=== PATIENT | female | born 1945 | race Caucasian/White ===

== ENCOUNTER → 2021-10-08 10:27 | Outpatient (BNVA) | payer BC, SELFPAY | PROVIDERS: Visit Provider Psychiatry & Neurology Neurology ==

== ENCOUNTER → 2021-12-14 09:00 | Outpatient (BNVA) | payer MEDICARE, BC, SELFPAY | PROVIDERS: Visit Provider Psychiatry & Neurology Neurology | DX: F09 Unspecified mental disorder due to known physiological condition (principal); F41.9 Anxiety disorder, unspecified; Z79.899 Other long term (current) drug therapy | CPT/HCPCS: 99212 ==

== ENCOUNTER → 2023-01-03 13:07 | Outpatient (BNVA) | payer MEDICARE, BC, SELFPAY | PROVIDERS: Visit Provider Psychiatry & Neurology Neurology | DX: F09 Unspecified mental disorder due to known physiological condition (principal); F41.9 Anxiety disorder, unspecified; R26.9 Unspecified abnormalities of gait and mobility | CPT/HCPCS: 99212 ==

== ENCOUNTER 2023-04-15 15:43 | Outpatient (AMB) | payer MEDICARE, BC, SELFPAY ==
--- NOTE | 2023-04-15 15:43 | A.OFFVIS_ITS ---
Intake Vital Signs 04/15/23 15:44 Weight 170 lb 6 oz BP 134/62 Blood Pressure Location Lt brachial Position Sitting Pulse 96 Pulse Source Pulse Oximeter Pulse Oximetry (%) 98 Oxygen Delivery Method Room Air Intake Visit Reasons: 3m follow up-confirmed Intake Note: Pt here today for 3 month fup Allergies No Known Allergies Allergy (Verified 04/15/23 15:48) Medication List - Last Reconciled 04/15/23 by Stacy Neil MD apixaban (Eliquis) 5 mg PO BID cholecalciferol (vitamin D3) 25 mcg PO DAILY citalopram 10 mg PO DAILY hydrochlorothiazide 12.5 mg PO DAILY levothyroxine 50 mcg PO DAILY memantine 7 mg PO DAILY memantine 21 mg PO DAILY simvastatin 10 mg PO DAILY HPI HPI Comments History of Present Illness Details 77y/o female comes for follow up.she was diagnosed with ovarian mass and during surgery diagnosed with appendix cancer . she sees an oncologist at [place]. 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 She had MRI brain 09/18/21- moderate parenchymal volume loss and probably white matter changes she is accompanied by her .Her memory is stable she is less anxious with citalopram. she repeats frequently . No hallucinations. [facility] Medical History Appendix carcinoma Back pain Cancer Gait disorder HTN (hypertension) Hyperlipidemia Hypothyroidism Surgical History H/O bilateral oophorectomy Hx of appendectomy Family History Mother HTN (hypertension) Diabetes mellitus Cancer Thyroid disorder Dementia Father Dementia Social History Alcohol intake: never Patient Tobacco Use Status: Never used Tobacco Physical Exam Vital Signs: Last Vital Signs Pulse 96 04/15/23 15:44 BP 134/62 04/15/23 15:44 Pulse Ox 98 04/15/23 15:44 Oxygen Delivery Method Room Air 04/15/23 15:44 Const Orientation/consciousness: oriented to person and oriented to place Neuro General: oriented to person, oriented to place and moves all extremities Cranial nerves: Yes CN's II-XII intact bilaterally and Yes Normal facial strength present Cognition (Neuro): abnormal cognition Motor exam (neuro): 5/5 motor strength present throughout Psych Appearance: grossly normal Assessment & Plan Assessment & Plan (1) Cognitive disorder: Code(s): F09 - Unspecified mental disorder due to known physiological condition (2) Anxiety: Code(s): F41.9 - Anxiety disorder, unspecified Plan continue citalopram 10mg qd for anxiety Continue namenda XR 21 mg qd and titrate to 28mg qd Suggested to include cognitive activities like playing cards , cross word puzzle etc in her daily activity PT- started 2 weeks ago Medications: Discontinued memantine Discontinued Reason: Patient no longer taking 7 mg PO DAILY 30 ea 0RF Coding Level of Care Code Est Pt Level 4 (83491) Diagnoses Cognitive disorder F09 Anxiety F41.9
[2023-04-15 15:44] VITALS: BP 134/62; PULSE 96; O2SAT 98
== END 2023-04-15 16:11 | disposition home or self-care (01) ==
PROVIDERS: Visit Provider Psychiatry & Neurology Neurology
DX: F41.9 Anxiety disorder, unspecified (principal); G31.84 Mild cognitive impairment of uncertain or unknown etiology
CPT/HCPCS: 99214

== ENCOUNTER → 2023-04-15 15:43 | Outpatient (BNVA) | payer MEDICARE, BC, SELFPAY | PROVIDERS: Visit Provider Psychiatry & Neurology Neurology | DX: F09 Unspecified mental disorder due to known physiological condition (principal); F41.9 Anxiety disorder, unspecified; Z79.899 Other long term (current) drug therapy | CPT/HCPCS: 99212 ==

== ENCOUNTER 2023-04-25 13:00 | Outpatient (RCR) | payer MEDICARE, BC, SELFPAY ==
--- NOTE | 2023-03-26 14:54 | MHC.PT.EP ---
[facility] [place] [facility] [place] [facility] [place] [facility] [address] Marcela Ayala [address] [phone] F: [phone] F: [phone] F: [phone] F: [phone] Physical Therapy Plan of Care Date of Evaluation: Date of Surgery: NA Diagnosis: ABNORMALITIES OF GT AND MOBILITY Assessment: Pt IS 77 YO F REFERRED TO PT FROM DR AHN PER REQUEST FROM Pt'S DTR (HOME CARE NURSE PRESENT FOR EVAL TODAY) WHO HAD NOTICED SOME BAL DEFICITS (NOT LIFTING LEGS ENOUGH WITH GT WHEN FATIGUED, TRUNK LEANING FORWARD WITH FATIGUE , HOLDING ON TO HUSBANDS ARM WITH GT ETC). Pt DID HAVE ONE FALL (TRIPPED OVER ROOT OF TREE) IN RECENT PAST. PRESENTS TO PT WITH GOOD LE STRENGTH MMT, GOOD GENERAL FLEXIBILITY WITH SOME HIGHER LEVEL BALANCE DEFICITS. Pt HAS SIGNIF MEMORY IMPAIRMENT. LIVES WITH IN SPLIT LEVEL WITH 6 CHILDREN INVOLVED. DOES NOT DRIVE (ALTHOUGH SAYS SHE STILL CAN). NO AD. HER GOAL IS TO GAIN CONFIDENCE WITH GT AND GAIN STRENGTH TO HELP WITH BALANCE. GOOD PT CANDIDATE TO HELP ACHIEVE THESE GOALS Frequency and Duration: The patient will be seen 2X/WK X 8 WKS Short Term Goals: 1. I HEP WITH DC EX PLAN 2. Pt WITH INCREASED UNDERSTANDING OF FALL PREVENTION IDEAS House Principal Goals: 1. IMPROVED TUG X 2-3 SECONDS 2. IMPROVED 30 SEC SIT<>STAND TO AT LEAST 10 REPS 3. Pt AND FAMILY TO REPORT NOTABLE IMPROVED BAL Treatment Plan: Modalities to reduce pain, spasms and effusion. Manual therapy to restore motion and function. Therapeutic exercise to improve strength and flexibility. Neuromuscular re-education for posture and balance. Therapeutic activities to return to functional activities of daily living. Electronically signed by: QI ALLISON PT Please sign and return to therapist. Thank you for your referral.
--- NOTE | 2023-06-25 09:29 | MHC.PT.DC ---
[facility] [place] Office [place] [facility] [place] [address] Marcela Ayala [address] [phone] F: [phone] F: [phone] F: [phone] F: [phone] Physical Therapy Discharge Report Diagnosis: ABNORMALITIES OF GT AND MOBILITY Date of Surgery: NA Date of Evaluation: 03/26/23 Date of Discharge: 06/25/23 Treatments to Date: 8 Cancellations to Date: No Shows to Date: Discharge Status: Recommend MD Follow-up Discharge Summary: PER ASSESSMENT BY RICCI BEARD PT,DPT AT LAST SESSION ON 04/25/23: Pt has attended 8 session of PT to date exhibiting improvements in endurance and LE strength gains since star of care. Pt denies history of falls or LOB in recent weeks however poor memory of patient ( Drew- denies incidence as well). Pt has exhibited plateaued in progress with therapy. She has been issued a written home program but reports poor compliance. Pt's educated in the importance of aiding his with remaining active via use of restorator and HEP sheets. Discussed benefit in consistency of HEP program at least a few times per week with support of family. Jane was able to complete all activities with no report of pain. Pt is scheduled to see speech and hearing 05/08/23 at 9:30am for a cognitive assessment. At this time memory appears to be of greater concern and mobility has improved. Pt's was educated should functional decline appear to change to address with any of her physicians. Pt to undergo another CT of abdomen to assess status of CA in [place] in a few weeks per report of Drew. Pt reports improved compliance with obtaining a medication pill box with support of . Primary PT had discussion with pt's daughter Nasima this week on 04/23/23 regarding plans for a family meeting to discuss patient progress. 04/18/23: Pt completed several dynamic stepping and change of positional for LE in the office today with no LOB observed. Pt's questioning how much longer she will need 2x/weekly. Secondary therapist to discuss with primary PT need to taper down due to limited gains, poor compliance reported at home. Of note: therapist inquired with patient how she was doing with new addition of Eliquis to her daily medications. Poor carryover of having a new medication, Drew has not been helping her take this. Pt was encouraged to start using a pill box for AM/PM to ensure she is taking her medication as recommended as well as having support from /family. Pt reports I always take my thyroid pill in the AM however she has poor insight and carryover and concern for lack of taking new medications. Expressed benefit in using pill box for all medications/consistency and ability to identify if she has taken her meds daily. WITH PLAN Pt to have family meeting, consult with speech regarding memory concerns. Tentative D/C to I HEP due to plateaued progress, poor compliance reported at home. Pt educated/ encouraged in need to complete HEP with support of family to maintain gains/mobility/strength. NO FURTHER APPTS SCHEDULED [ End ] Electronically signed by: QI ALLISON PT Please sign and return to therapist. Thank you for your referral.
== END 2023-06-25 09:29 | disposition home or self-care (01) ==
LOC: HO.PTWFD 13:00
PROVIDERS: PCP Internal Medicine; Visit Provider Psychiatry & Neurology Neurology
DX: R26.9 Unspecified abnormalities of gait and mobility (principal)
CPT/HCPCS: 97110; 97161; 97530; 97535

== ENCOUNTER 2023-10-13 15:34 | Outpatient (AMB) | payer MEDICARE, BC, SELFPAY ==
--- NOTE | 2023-10-13 15:37 | MHC.OFFVIS ---
Intake Vital Signs 10/13/23 15:39 Height 5 ft 2 in Weight 175 lb BMI 32.0 BP 132/70 Blood Pressure Location Rt brachial Position Sitting Respiration 17 Pulse 92 Pulse Source Pulse Oximeter Pulse Oximetry (%) 98 Oxygen Delivery Method Room Air Intake Visit Reasons: 6 mo follow up - LVM Intake Note: Pt presents for a 6 month follow up for cognitive disorder. Associate Brand Manager Required: No Allergies No Known Allergies Allergy (Verified 10/13/23 15:38) Medication List - Last Reconciled 10/13/23 by Stacy Neil MD apixaban (Eliquis) 5 mg PO BID cholecalciferol (vitamin D3) 25 mcg PO DAILY citalopram 10 mg PO DAILY hydrochlorothiazide 12.5 mg PO DAILY levothyroxine 100 mcg PO DAILY memantine 28 mg PO DAILY simvastatin 10 mg PO DAILY HPI HPI Comments History of Present Illness Details 78y/o female comes for follow upHer cognition is worse. .she was diagnosed with ovarian mass and during surgery diagnosed with appendix cancer . she sees an oncologist at [place]. 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 She had MRI brain 09/18/21- moderate parenchymal volume loss and probably white matter changes she is accompanied by her .Her memory is stable she is less anxious with citalopram. she repeats frequently . No hallucinations. [facility] Medical History (Updated 04/17/23 @ 13:56 by Stacy Neil MD) Cognitive change Gait disorder Appendix carcinoma Cancer Back pain Hypothyroidism Hyperlipidemia HTN (hypertension) Surgical History Hx of appendectomy H/O bilateral oophorectomy Family History Mother HTN (hypertension) Diabetes mellitus Cancer Thyroid disorder Dementia Father Dementia Social History Alcohol intake: never Patient Tobacco Use Status: Never used Tobacco Physical Exam Vital Signs: Last Vital Signs Pulse 92 10/13/23 15:39 Resp 17 10/13/23 15:39 BP 132/70 10/13/23 15:39 Pulse Ox 98 10/13/23 15:39 Oxygen Delivery Method Room Air 10/13/23 15:39 BMI result Body Mass Index 32.0 Const Orientation/consciousness: oriented to person and oriented to place Neuro General: oriented to person, oriented to place and moves all extremities Cranial nerves: Yes CN's II-XII intact bilaterally and Yes Normal facial strength present Cognition (Neuro): abnormal cognition Motor exam (neuro): 5/5 motor strength present throughout Psych Appearance: grossly normal Assessment & Plan Assessment & Plan (1) Cognitive disorder: Code(s): F09 - Unspecified mental disorder due to known physiological condition (2) Anxiety: Code(s): F41.9 - Anxiety disorder, unspecified Plan continue citalopram 10mg qd for anxiety Continue namenda XR 28mg qd Suggested to include cognitive activities like playing cards , cross word puzzle etc in her daily activity Medications: New donepezil 1/2 tab qd for 4 weeks then 1 tab qd 10 mg PO DAILY 30 tabs 6RF Refilled citalopram 10 mg PO DAILY 90 tabs 2RF memantine 28 mg PO DAILY 30 ea 6RF Coding Level of Care Code Est Pt Level 4 (94324) Diagnoses Cognitive disorder F09 Anxiety F41.9
[2023-10-13 15:39] VITALS: BP 132/70; PULSE 92; RESP 17; O2SAT 98; BMI 32.0
== END 2023-10-13 16:10 | disposition home or self-care (01) ==
PROVIDERS: PCP Internal Medicine; Visit Provider Psychiatry & Neurology Neurology
DX: R41.89 Other symptoms and signs involving cognitive functions and awareness (principal); F41.9 Anxiety disorder, unspecified; C18.1 Malignant neoplasm of appendix
CPT/HCPCS: 99214

== ENCOUNTER → 2023-10-13 15:34 | Outpatient (BNVA) | payer MEDICARE, BC, SELFPAY | PROVIDERS: PCP Internal Medicine; Visit Provider Psychiatry & Neurology Neurology | DX: F09 Unspecified mental disorder due to known physiological condition (principal); F41.9 Anxiety disorder, unspecified | CPT/HCPCS: 99212 ==

== ENCOUNTER 2024-04-14 13:47 | Outpatient (AMB) | payer MEDICARE, BC, SELFPAY ==
--- NOTE | 2024-04-14 13:47 | MHC.OFFVIS ---
Intake Visit Reasons: Follow up Nicole: [phone] Intake Note: Pt presents for follow up for cognitive disorder via telehealth. Crystal Inspector Required: No Allergies No Known Allergies Allergy (Verified 04/14/24 13:48) [facility] Medical History (Updated 04/17/23 @ 13:56 by Stacy Neil MD) Cognitive change Gait disorder Appendix carcinoma Cancer Back pain Hypothyroidism Hyperlipidemia HTN (hypertension) Surgical History Hx of appendectomy H/O bilateral oophorectomy Family History Mother HTN (hypertension) Diabetes mellitus Cancer Thyroid disorder Dementia Father Dementia Social History Alcohol intake: never Patient Tobacco Use Status: Never used Tobacco Coding
--- NOTE | 2024-04-14 14:12 | A.OFFVIS_ITS ---
Intake Visit Reasons: Follow up Nicole: [phone] Allergies No Known Allergies Allergy (Verified 04/14/24 13:48) HPI Comments Details: 78y/o female calls for follow up Her cognition is same SHe reports excessive fatigue and lack of motivation Her mood is stable . .she was diagnosed with ovarian mass and during surgery diagnosed with appendix cancer . she has a follow up with oncologist She had MRI brain 09/18/21- moderate parenchymal volume loss and probably white matter changes she is accompanied by her .Her memory is stable she is less anxious with citalopram. she repeats frequently . No hallucinations. [facility] Medical History Cognitive change Gait disorder Appendix carcinoma Cancer Back pain Hypothyroidism Hyperlipidemia HTN (hypertension) Surgical History Hx of appendectomy H/O bilateral oophorectomy Family History Mother HTN (hypertension) Diabetes mellitus Cancer Thyroid disorder Dementia Father Dementia Social History Alcohol intake: never Patient Tobacco Use Status: Never used Tobacco Physical Exam Const General: cooperative Orientation/consciousness: oriented to person and oriented to place Neuro General: oriented to person and oriented to place Telehealth Telehealth Telehealth Platform: Telephone Location of provider rendering services: practice address Location of patient: address on file Patient Identification confirmed using: Name, : Yes Telehealth method: voice only Patient verbally consented to treatment: Yes Patient verbally consented to billing insurance company: Yes Patient informed of any privacy concerns related to visit: Yes Assessment & Plan Assessment & Plan (1) Cognitive disorder: Code(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 Coding Level of Care Code Tele Est Pt Level 4 (10424) Diagnoses Cognitive disorder F09 Anxiety F41.9 Time Spent (min) 16
== END 2024-04-14 16:11 | disposition home or self-care (01) ==
LOC: HO.HSMS 13:47
PROVIDERS: PCP Internal Medicine; Visit Provider Psychiatry & Neurology Neurology
DX: R41.89 Other symptoms and signs involving cognitive functions and awareness (principal); F41.9 Anxiety disorder, unspecified
CPT/HCPCS: 99442

== ENCOUNTER → 2024-04-14 13:47 | Outpatient (BNVA) | payer MEDICARE, BC, SELFPAY | PROVIDERS: PCP Internal Medicine; Visit Provider Psychiatry & Neurology Neurology ==

== ENCOUNTER 2024-07-28 07:15 | Inpatient (IN) | payer MEDICARE, BC, SELFPAY ==
[2024-07-28] VITALS (8 sets, daily range): BP systolic 105–149; BP diastolic 44–74; PULSE 78–94; RESP 12–18; TEMP 37–37.8; O2SAT 93–97; BMI 33.7; BMI 33.2
--- NOTE | ~2024-07-28 | XR_ITS ---
EXAMINATION: XR CHEST CLINICAL INFORMATION: upper resp sx COMPARISON: None available. TECHNIQUE: Frontal view of the chest was obtained. FINDINGS: Ill-defined patchy opacity right upper hemithorax. No pleural effusion. No pneumothorax. No hyperinflation. Cardiomediastinal silhouette is normal in size. S-shaped curvature of the thoracolumbar spine. XR/XR chest 1V IMPRESSION: Concerning malignancy either primary versus metastatic, right lung. Electronically signed by: David Siu MD 07/28/2024 08:45 AM JAMES
--- NOTE | ~2024-07-28 | CT_ITS ---
EXAMINATION: CT HEAD WITHOUT CONTRAST CLINICAL INFORMATION: Weakness COMPARISON: None available. TECHNIQUE: Contiguous axial imaging was performed from the skull base to vertex without intravenous administration of contrast. This CT examination was performed using dose optimization techniques as appropriate, variously including the following: *Automated exposure control *Adjustment of mA and/or kV according to patient size (this includes techniques or standardized protocols for targeted exams where dose is matched to indication/reason for exam; i.e. extremities or head) *Use of iterative reconstruction technique DLP: 1058 mGy-cm FINDINGS: Study limited by patient motion. There is prominence to the sulci and ventricles compatible with involutional change with deep white matter gliosis noted. No evidence for intra or extra axial fluid collection, hemorrhage, mass, or mass effect. Calvarium is intact. No fracture seen. CT/CT head/brain wo IV con IMPRESSION: No acute intracranial pathology. Electronically signed by: Ja Arreguin MD 07/28/2024 09:31 AM JAMES
--- NOTE | ~2024-07-28 | CT_ITS ---
EXAMINATION: CT CHEST WITH CONTRAST CLINICAL INFORMATION: Right upper lobe mass. COMPARISON: Correlated to chest x-ray dated July 28, 2024. TECHNIQUE: Multidetector volumetric CT imaging of the chest was obtained after the administration of 65 mL of Omnipaque 350 intravenous contrast without immediate adverse reactions. Axial MIP volume rendering provided. Sagittal and coronal reformatted images were obtained. This CT examination was performed using dose optimization techniques as appropriate, variously including the following: *Automated exposure control *Adjustment of mA and/or kV according to patient size (this includes techniques or standardized protocols for targeted exams where dose is matched to indication/reason for exam; i.e. extremities or head) *Use of iterative reconstruction technique DLP: 523 mGy-cm FINDINGS: Limited by patient's breathing motion artifact. LUNGS: Patchy peribronchial pulmonary groundglass right upper lobe and right lung base. No bronchiectasis. No honeycombing. MEDIASTINUM: No lymphadenopathy, mediastinum or perihilar. No pericardial effusion. Calcified plaques in the thoracic aorta wall and its main branches. No aneurysm or dissection, thoracic aorta. Calcified plaques in the coronary arteries. PLEURA: No pleural effusion. No pneumothorax. AXILLA: No lymphadenopathy. UPPER ABDOMEN: Calcified plaques in the splenic artery and calcified plaques in the abdominal aorta and the origin of the main renal arteries. OSSEOUS STRUCTURES: Multilevel spondylosis without acute fracture or listhesis. No gross lytic or blastic lesions. CT/CT chest w IV con IMPRESSION: Multifocal pneumonia, right upper lobe and right lung bases. Follow-up until resolution. Fleischner guidelines were followed. Electronically signed by: David Siu MD 07/28/2024 02:05 PM JAMES
--- NOTE | 2024-07-28 07:38 | ECG_ITS ---
Test Reason : fall Blood Pressure : / mmHG Vent. Rate : 084 BPM Atrial Rate : 084 BPM P-R Int : 124 ms QRS Dur : 106 ms QT Int : 388 ms P-R-T Axes : 053 044 035 degrees QTc Int : 458 ms Sinus rhythm with Premature atrial complexes Incomplete right bundle branch block T wave abnormality, consider anterior ischemia Abnormal ECG No previous ECGs available Referred By: Harjinder Jorgensen Electronically Signed By:KIRT ENGLISH MD
[2024-07-28 08:13] LABS: MANUAL DIFF FLAG NO
[2024-07-28 08:15] LABS: Basophils Absolute Auto 0.1 X10*3/uL (0.0-0.2); Basophils Percent Auto 0.5 % (0-2); Eosinophils Percent Auto 0.2 % (0-4); Hematocrit 41.2 % (37.0-47.0); Hemoglobin 14.2 g/dl (12.0-16.0); Imm Gran Abs Auto 0.03 X10*3/uL (0.00-0.03); Imm Gran Pct Auto 0.3 % (0.0-0.4); Lymphocytes Absolute Auto 1.2 X10*3/uL (1.2-4.9); Lymphocytes Percent Auto 12.1 % (20-40); Mean Corpuscular HGB Conc 34.5 g/dl (31.0-35.0); Mean Corpuscular Hemoglobin 30.3 pg (27.0-33.0); Mean Corpuscular Volume 87.8 fL (80.0-98.0); Monocytes Absolute Auto 0.8 X10*3/uL (0.1-1.2); Monocytes Percent Auto 7.7 % (2-11); Neutrophils Absolute Auto 7.8 x10*3/uL (2.0-8.3); Neutrophils Percent Auto 79.2 % (45-73); Platelet Count 192 X10*3/uL (160-400); Red Blood Count 4.69 X10*6/uL (4.20-5.50); Red Cell Distribution Width 12.5 % (11.0-16.0); White Blood Count 9.9 X10*3/uL (4.8-10.8)
[2024-07-28 08:19] LABS: Appearance Urine Cloudy; Color Urine Yellow; Glucose Urine UA Negative (Negative); Leukocyte Esterase Urine Negative (Negative); Nitrite Urine Negative (Negative); PH 5.5 (5.0-9.0); Specific Gravity - Urine 1.015 (1.005-1.025); UMIC TRIGGER UACC YES; Urine Blood Large (3+) (Negative); Urine Ketones Negative (Negative); Urine Protein 30 (1+) mg/dL (Neg-Trace)
[2024-07-28 08:24] LABS: Bacteria Urine Trace (None Seen); Hyaline Casts Urine 0-2 /LPF (0-2); WBC Urine 0-5 /HPF (0-5)
[2024-07-28 08:37] LABS: Troponin-I High Sensitivity 9.8 ng/L (<3.5-17.0)
--- NOTE | 2024-07-28 08:55 | PC.NURSE ---
pt alert to person at times place, labs drawn/ekg performed, swab performed, lungs diminished throughout, non productive cough. upon arriving he told his daughter at bedside that pt had slid down onto the floor- denied any head strike. cxr performed, Pt and do live with their son and .
--- NOTE | 2024-07-28 08:59 | ED.GENADULT ---
HPI - General Adult General Chief complaint: Upper Respiratory Symptoms Stated complaint: WEAKNESS Time Seen by Provider: 07/28/24 07:31 Source: family Mode of arrival: ambulatory Limitations: altered mental status History of Present Illness ED Provider: Dr. Jorgensen HPI narrative: Patient is a 78yo female with hitory of dementia, hypothyroidism, hyperlipidemia,, hypertension who presents with weakness and cough. Patient has had a 3 day history of cough, could not get out of bed so the family called the ambulance Onset (ago): day(s) Related Data Home Medications ?Medication ?Instructions ?Recorded ?Confirmed cholecalciferol (vitamin D3) 25 25 mcg PO DAILY 10/08/21 10/13/23 mcg (1,000 unit) capsule hydrochlorothiazide 12.5 mg tablet 12.5 mg PO DAILY 10/08/21 10/13/23 simvastatin 10 mg tablet 10 mg PO DAILY 10/08/21 10/13/23 apixaban 5 mg tablet (Eliquis) 5 mg PO BID 04/15/23 10/13/23 levothyroxine 50 mcg capsule 88 mcg PO DAILY 04/14/24 Previous Rx's ?Medication ?Instructions ?Recorded citalopram 10 mg tablet 10 mg PO DAILY #90 tabs 10/13/23 donepezil 10 mg tablet 10 mg PO DAILY #30 tabs 10/13/23 memantine 28 mg capsule 28 mg PO DAILY #30 ea 07/12/24 sprinkle,extended release 24hr Allergies Allergy/AdvReac Type Severity Reaction Status Date / Time No Known Allergies Allergy Verified 07/28/24 07:28 Review of Systems Review of Systems: Yes Unobtainable due to mental status Neurologic: Denies Sensory deficit (Neuro) FOR[facility]LY [facility] Past Medical History Medical History Dementia Cognitive change Gait disorder Appendix carcinoma Cancer Back pain Hypothyroidism Hyperlipidemia HTN (hypertension) Surgical History Hx of appendectomy H/O bilateral oophorectomy Family History Family History Mother HTN (hypertension) Diabetes mellitus Cancer Thyroid disorder Dementia Father Dementia Social History Social History Unable to assess alcohol history related to: Unable to respond Alcohol intake: never Patient Tobacco Use Status: Never used Tobacco Smoked in Last 30 Days: No Use of substances other than those prescribed or required for medical reasons: No Advance Directives: No Advance Directives Information Provided: Yes Do you have a plan to hurt others: No Plan Physical Exam ED Vital Signs: Vital Signs - 24 hr 07/28/24 07:23 07/28/24 07:30 07/28/24 12:54 Temperature 99.0 F Pulse Rate 82 86 Respiratory Rate 18 18 Blood Pressure 149/66 H 124/47 L Pulse Oximetry 97 97 94 Oxygen Delivery Method Room Air Room Air Room Air 07/28/24 14:32 Temperature 100.1 F Pulse Rate 94 Respiratory Rate 12 Blood Pressure 146/57 H Pulse Oximetry 95 Oxygen Delivery Method Room Air BMI result Body Mass Index 33.7 Const Other: occaisional cough Nutritional Appearance: average body habitus Orientation/consciousness: oriented to person Limitations: no limitations HENMT Head: Yes normal to inspection Ears: external ears normal General nose exam: Normal external nose present Mouth: Normal oral and palatal mucosa present and oropharynx normal Throat: Yes posterior oropharynx normal Eyes General: appearance normal, both eyes and all related structures Neck Neck: Yes normal visual inspection Chest Chest palpation & inspection: normal inspection of the chest Resp Auscultation: clear to auscultation bilaterally Cardio Jugular venous distension: no JVD Rate: regular rate Rhythm: regular rhythm Heart sounds: S1 normal heart sound present and S2 normal heart sound present GI Inspection: Yes normal to inspection Palpation (GI): Soft to palpation, nontender and No hepatosplenomegaly present Auscultation: normal bowel sounds General: Yes no CVA tenderness Back/Spine/Pelvis Back: no CVA tenderness Skin General skin exam: no rashes or lesions noted Neuro General: oriented to person Cranial nerves: Yes CN's II-XII intact bilaterally Motor exam (neuro): 5/5 motor strength present throughout Sensory Exam: No Sensory deficit (Neuro) Extrem General: Yes normal to inspection Psych Appearance: grossly normal Course Reevaluation(s) Reevaluation #1: Patient now spiking fevers, infiltrate on CT will start IV abx and admit. Time: 14:51 Medications Administered Discontinued Medications Generic Name Dose Route Start Last Admin Trade Name Freq PRN Reason Stop Dose Admin Diphenhydramine HCl 25 mg 07/28/24 12:34 07/28/24 12:43 Diphenhydramine Hcl 50 Mg/Ml Vial IVPUSH 07/28/24 12:35 25 mg ONCE ONE Administration Iohexol 100 ml 07/28/24 12:26 07/28/24 12:26 Iohexol 350 Mg/Ml 100 Ml Infus..Btl IV 07/28/24 12:27 65 ml ONCE ONE Administration Potassium Chloride 20 meq 07/28/24 12:23 07/28/24 12:43 Potassium Chloride Er 20 Meq Tab.Er.Prt PO 07/28/24 12:24 20 meq ONCE ONE Administration Medical Decision Making Differential Diagnosis Differential Diagnoses: The differential diagnosis associated with the presentation includes (Weakness, lung mass, pneumonia, UTI, electrolyte abnormality) Admission/Observation Consideration of admission/observation: Escalation of care including admission/observation considered (upon arrival patient considered for admisson) Consult Healthcare Provider Management of the patient was discussed with: Hospitalist Lab Data 07/28/24 08:07 07/28/24 08:07 Labs: Lab Results 07/28/24 Range/Units 08:07 WBC 9.9 (4.8-10.8) X10*3/uL RBC 4.69 (4.20-5.50) X10*6/uL Hgb 14.2 (12.0-16.0) g/dl Hct 41.2 (37.0-47.0) % MCV 87.8 (80.0-98.0) fL MCH 30.3 (27.0-33.0) pg MCHC 34.5 (31.0-35.0) g/dl RDW 12.5 (11.0-16.0) % Plt Count 192 (160-400) X10*3/uL MPV 10.0 (9.4-12.3) fL Immature Gran % (Auto) 0.3 (0.0-0.4) % Neut % (Auto) 79.2 H (45-73) % Lymph % (Auto) 12.1 L (20-40) % Citrus % (Auto) 7.7 (2-11) % Eos % (Auto) 0.2 (0-4) % Baso % (Auto) 0.5 (0-2) % Lymph # (Auto) 1.2 (1.2-4.9) X10*3/uL [place]rus # (Auto) 0.8 (0.1-1.2) X10*3/uL Eos # (Auto) 0.0 (0.0-0.4) X10*3/uL Baso # (Auto) 0.1 (0.0-0.2) X10*3/uL Abs Immat Gran (auto) 0.03 (0.00-0.03) X10*3/uL Absolute Neuts (auto) 7.8 (2.0-8.3) x10*3/uL Absolute Nucleated RBC 0.000 (0.0-0.012) X10*3/uL Nucleated RBC % (auto) 0.0 (0.0-0.2) /100WBC Sodium 139 (135-145) mmol/L Potassium 2.9 L* (3.3-5.1) mmol/L Chloride 96 (96-108) mmol/L Carbon Dioxide 27 (22-29) mmol/L Anion Gap 19 (12-20) BUN 20 H (9-16) mg/dL Creatinine 1.13 (0.5-1.4) mg/dL Estim Creat Clear Calc 39.5 Estimated GFR 47 Random Glucose 115 (60-115) mg/dL Calcium 9.9 (8.4-10.2) mg/dL Magnesium 2.0 (1.6-2.6) mg/dL Troponin I High Sens 9.8 (<3.5-17.0) ng/L Urine Color Yellow Urine Appearance Cloudy Urine pH 5.5 (5.0-9.0) Ur Specific [place] 1.015 (1.005-1.025) Urine Protein 30 (1+) H (Neg-Trace) mg/dL Urine Glucose (UA) Negative (Negative) mg/dL Urine Ketones Negative (Negative) mg/dL Urine Blood Large (3+) H (Negative) Urine Nitrite Negative (Negative) Ur Leukocyte Esterase Negative (Negative) Urine RBC 11-20 H (0-2) /HPF Urine WBC 0-5 (0-5) /HPF Ur Squamous Epith Cells 11-20 (0-2) /HPF Urine Bacteria Trace (None Seen) Hyaline Casts 0-2 (0-2) /LPF Influenza Type A (PCR) NEGATIVE (Negative) Influenza Type B (PCR) NEGATIVE (Negative) RSV RNA Qual (PCR) NEGATIVE (Negative) SARS-CoV-2 RNA (RT-PCR) NEGATIVE (Negative) Independent Interpretation I performed an independent interpretation of an: Plain X-Ray (RUL infiltrate) and CT Scan (right upper lobe infiltrate) Independent Historian Clinical information obtained from an independent historian. History obtained from or confirmed by: Other (daughter) Chronic Conditions Patient?s care impacted by: Hypertension and Other (dementia) Discharge Plan Discharge Clinical Impression: Pneumonia, Weakness Patient Disposition: Admitted As Inpatient Print Language: Citizen Of [place]
[2024-07-28 09:26] LABS: Influenza A PCR NEGATIVE (Negative); Influenza B PCR NEGATIVE (Negative); Resp Syncy Virus RNA Qual PCR NEGATIVE (Negative); SARS COV2 PCR INHOUSE NEGATIVE (Negative)
[2024-07-28 12:01] LABS: Anion Gap 19 (12-20); Blood Urea Nitrogen 20 mg/dL (9-16); Calcium 9.9 mg/dL (8.4-10.2); Carbon Dioxide 27 mmol/L (22-29); Chloride 96 mmol/L (96-108); Creatinine Clr Calc Pharmacy 39.5; Estimated Glomerular Filt Rate 47; Glucose Random 115 mg/dL (60-115); Potassium 2.9 mmol/L (3.3-5.1); Sodium 139 mmol/L (135-145)
[2024-07-28] MEDS: iohexoL 350 MG/ML 100 ML INFUS..BTL IV (12:26)
[2024-07-28] MEDS: diphenhydrAMINE HCL 50 MG/ML VIAL 25 MG IVPUSH (12:43)
[2024-07-28] MEDS: Potassium Chloride ER 20 MEQ TAB.ER.PRT PO (12:43)
--- NOTE | 2024-07-28 15:20 | P.HPHOSP_ITS ---
History of Present Illness Date of Service: 07/28/24 Chief Complaint: lethargy 78F PMH unspecified dementia, hypothryoid, hyperlipidemia, hypertension presented with lethargy. Patient's symptoms began about 3 days prior to presentation associated with cough and significant diffuse weakness inability to ambulate. On day of presentation patient unable to get out of bed so ambulance was called. In ED found to have multifocal pneumonia on right side and low- grade fever. Started on ceftriaxone. Review of Systems 2 Review of Systems: Yes all other systems are reviewed and are negative FORMERLY [facility], [facility] Medical History Dementia Cognitive change Gait disorder Appendix carcinoma Cancer Back pain Hypothyroidism Hyperlipidemia HTN (hypertension) Family History Mother HTN (hypertension) Diabetes mellitus Cancer Thyroid disorder Dementia Father Dementia Surgical History Hx of appendectomy H/O bilateral oophorectomy Social History Unable to assess alcohol history related to: Unable to respond Alcohol intake: never Patient Tobacco Use Status: Never used Tobacco Smoked in Last 30 Days: No Use of substances other than those prescribed or required for medical reasons: No Advance Directives: No Advance Directives Information Provided: Yes Do you have a plan to hurt others: No Plan Meds Allergies Allergy/AdvReac Type Severity Reaction Status Date / Time No Known Allergies Allergy Verified 07/28/24 07:28 Active Medications: Current Medications Azithromycin (Azithromycin 500 Mg Tablet) 500 mg PO Q24H KANDY Ceftriaxone Sodium (Ceftriaxone Sodium 1 Gm Vial) 1 gm IVPUSH Q24H KANDY Azithromycin 500 mg/ Sodium (Chloride) 250 mls @ 125 mls/hr IV ONCE ONE Stop: 07/28/24 16:40 Home Medications ?Medication ?Instructions ?Recorded ?Confirmed ?Last Taken ?Type cholecalciferol (vitamin D3) 25 25 mcg PO DAILY 10/08/21 07/28/24 07/27/24 History mcg (1,000 unit) capsule hydrochlorothiazide 12.5 mg tablet 12.5 mg PO DAILY 10/08/21 07/28/24 07/27/24 History simvastatin 10 mg tablet 10 mg PO DAILY 01/07/28/24 07/27/24 History levothyroxine 88 mcg tablet 88 mcg PO DAILY@0600 07/28/24 07/28/24 07/27/24 History Physical Exam 2 Vital Signs and Narrative: Vital Signs: Last Vital Signs Temp 100.1 F 07/28/24 14:32 Pulse 94 07/28/24 14:32 Resp 12 07/28/24 14:32 BP 146/57 H 07/28/24 14:32 Pulse Ox 95 07/28/24 14:32 O2 Del Method Room Air 07/28/24 14:32 BMI result Body Mass Index 33.7 Alert oriented to person and place not time, poor insight Lungs clear No acute distress, no edema Results Labs 07/28/24 08:07 07/28/24 08:07 Labs: Laboratory Results - last 24 hr 07/28/24 08:07 MCV 87.8 MCH 30.3 MCHC 34.5 RDW 12.5 Plt Count 192 MPV 10.0 Immature Gran % (Auto) 0.3 Neut % (Auto) 79.2 H Lymph % (Auto) 12.1 L Luce % (Auto) 7.7 Eos % (Auto) 0.2 Baso % (Auto) 0.5 Lymph # (Auto) 1.2 Luce # (Auto) 0.8 Eos # (Auto) 0.0 Baso # (Auto) 0.1 Abs Immat Gran (auto) 0.03 Absolute Neuts (auto) 7.8 Absolute Nucleated RBC 0.000 Nucleated RBC % (auto) 0.0 Anion Gap 19 Estim Creat Clear Calc 39.5 Estimated GFR 47 Random Glucose 115 Calcium 9.9 Magnesium 2.0 Troponin I High Sens 9.8 Urine Color Yellow Urine Appearance Cloudy Urine pH 5.5 Ur Specific [place] 1.015 Urine Protein 30 (1+) H Urine Glucose (UA) Negative Urine Ketones Negative Urine Blood Large (3+) H Urine Nitrite Negative Ur Leukocyte Esterase Negative Urine RBC 11-20 H Urine WBC 0-5 Ur Squamous Epith Cells 11-20 Urine Bacteria Trace Hyaline Casts 0-2 Influenza Type A (PCR) NEGATIVE Influenza Type B (PCR) NEGATIVE RSV RNA Qual (PCR) NEGATIVE SARS-CoV-2 RNA (RT-PCR) NEGATIVE Imaging Radiologist's Impressions: Impressions Chest X-Ray 07/28/24 07:58 IMPRESSION: Concerning malignancy either primary versus metastatic, right lung. Electronically signed by: David Siu MD 07/28/2024 08:45 AM EST RP Head CT 07/28/24 09:05 IMPRESSION: No acute intracranial pathology. Electronically signed by: Ja Arreguin MD 07/28/2024 09:31 AM EST RP Chest CT 07/28/24 09:20 IMPRESSION: Multifocal pneumonia, right upper lobe and right lung bases. Follow-up until resolution. Fleischner guidelines were followed. Electronically signed by: David Siu MD 07/28/2024 02:05 PM EST RP Assessment and Plan (1) Pneumonia: Status: Acute Plan 78F PMH unspecified dementia, hypothryoid, hyperlipidemia, hypertension presented with lethargy Acute metabolic encephalopathy and diffuse weakness due to pneumonia - multifocal right-sided Ceftriaxone azithromycin, follow up cultures Physical therapy Unspecified dementia memantine, aricept acute hypokalemia replace and monitor Hyperlipidemia statin Hypertension hctz Hypothyroid Levothyroxine DVT prophylaxis with Lovenox Full Code Patient with significant pneumonia causing profuse weakness expected require at least 2 midnights inpatient for IV antibiotics due to risk of decompensation based on patient's age and dementia. Quality Stroke Does the patient have a stroke diagnosis?: No VTE Prior VTE?: No VTE Risk Level:: Medical - moderate - high VTE Device Contraindication: Treatment Not Indicated VTE Drug Contraindication: N/A - Med Ordered
[2024-07-28] MEDS: Azithromycin 500 MG in 0.9 % Sodium Chloride 250 ML 125 MG IV (15:32)
[2024-07-28] MEDS: Enoxaparin Sodium 40 MG/0.4 ML SYRINGE SUBCUT (15:32)
[2024-07-28] MEDS: cefTRIAXone sodium 1 GM VIAL IVPUSH (15:32)
[2024-07-28] MEDS: Acetaminophen 325 MG TABLET 650 MG PO (15:32)
[2024-07-28 15:35] LABS: Alanine Aminotransferase 15 U/L (0-31); Albumin Level 4.1 g/dL (3.5-5.0); Alkaline Phosphatase 29 U/L (39-117); Aspartate Amino Transferase 24 U/L (5-31); Bilirubin Direct 0.3 mg/dL (0.0-0.5); Bilirubin Total 0.8 mg/dL (0.0-1.0); Total Protein 7.5 g/dL (6.5-8.0)
[2024-07-28] MEDS: 0.9 % Sodium Chloride Flush 3 ML SYRINGE IVFLUSH (15:39)
--- NOTE | 2024-07-28 15:45 | PHA.MEDREC ---
Pharmacy Consult ? Medication Reconciliation Pharmacy has completed the medication reconciliation. Spoke to patient's daughter Maryellen at bedside to confirm medication list. Daughter verified that pt is no longer taking eliquis.
[2024-07-28] MEDS: 0.9 % Sodium Chloride 1,000 ML 75 ML IVCONT (18:42)
[2024-07-29] MEDS: QUEtiapine Fumarate 25 MG TABLET PO (00:42)
[2024-07-29 03:43] VITALS: BP 162/70; PULSE 94; RESP 18; TEMP 36.7; O2SAT 93
[2024-07-29] MEDS: Levothyroxine Sodium 88 MCG TABLET PO (05:53)
[2024-07-29 06:41] LABS: Hematocrit 38.5 % (37.0-47.0); Hemoglobin 12.7 g/dl (12.0-16.0); Mean Corpuscular Hemoglobin 29.9 pg (27.0-33.0); Mean Corpuscular Volume 90.6 fL (80.0-98.0); Mean Platelet Volume 10.8 fL (9.4-12.3); Platelet Count 167 X10*3/uL (160-400); Red Blood Count 4.25 X10*6/uL (4.20-5.50); Red Cell Distribution Width 12.5 % (11.0-16.0); White Blood Count 7.7 X10*3/uL (4.8-10.8)
[2024-07-29 07:39] LABS: Anion Gap 18 (12-20); Blood Urea Nitrogen 20 mg/dL (9-16); Calcium 8.8 mg/dL (8.4-10.2); Carbon Dioxide 24 mmol/L (22-29); Chloride 100 mmol/L (96-108); Creatinine Clr Calc Pharmacy 51.5; Estimated Glomerular Filt Rate > 60; Glucose Fasting 81 mg/dL (60-99); Potassium 3.2 mmol/L (3.3-5.1); Sodium 139 mmol/L (135-145)
--- NOTE | 2024-07-29 07:50 | MHC.CM.PN ---
Addendum entered by Merary Duarte 07/29/24 13:10: [facility] has offered a bed for STR. She will admit on Friday07/31/24. She will transport via BLS. Addendum entered by Merary Duarte 07/29/24 11:25: PT eval recommends STR. Pt preference obtained. A referral has been sent to [facility]. Original Note: IMM 07/29/24 Female 78 DX PNEUMONIA HX Dementia. DAYA LE weakness x 2 days. She lives with her spouse. Her son and is family family live with them. She ambulates independently. She is now requiring assistance and a tub bench to shower safely. Short term memory is very poor. She does not remember that she has dementia. She needs supervision + assistance. She is cooperative and easily re directed. A copy of the HCP has been requested. A PT eval has been ordered. DP STR VIA BLS VS home with family support and transport.
[2024-07-29 08:00] VITALS: BP 133/62; PULSE 88; RESP 16; TEMP 37.3; O2SAT 93
--- NOTE | 2024-07-29 08:59 | HO.PM.IMPN ---
Subjective Subjective Date of Service: 07/29/24 Interval History: tired, improved Physical Exam Vital Signs: Vital Signs: Last Vital Signs Temp 99.1 F 07/29/24 08:00 Pulse 88 07/29/24 08:00 Resp 16 07/29/24 08:00 BP 133/62 07/29/24 08:00 Pulse Ox 93 07/29/24 08:00 O2 Del Method Room Air 07/29/24 08:00 BMI result Body Mass Index 33.2 General: AO X 2, no acute distress Resp: CTA bilateral, no accessory muscles used CVS: S1,S2,RRR GI: soft, non tender, non distended Neuro: motor grossly intact, alert Psych: appropriate affect, poor insight Objective Data Active Medications Acetaminophen (Acetaminophen 325 Mg Tablet) 650 mg PO Q6H PRN PRN Reason: Pain, Mild (Pain Scale 1-3), fever or headache Last Admin: 07/28/24 15:32 Dose: 650 mg Documented By: XIANG Atorvastatin Calcium (Atorvastatin Calcium 10 Mg Tablet) 10 mg PO DAILY [facility] Azithromycin (Azithromycin 500 Mg Tablet) 500 mg PO Q24H [facility] Calcium Carbonate (Calcium Carbonate 750 Mg Tab.Chew) 750 mg PO Q4H PRN PRN Reason: Heartburn Ceftriaxone Sodium (Ceftriaxone Sodium 1 Gm Vial) 1 gm IVPUSH Q24H [facility] Enoxaparin Sodium (Enoxaparin Sodium 40 Mg/0.4 Ml Syringe) 40 mg SUBCUT Q24H [facility] Last Admin: 07/28/24 15:32 Dose: 40 mg Documented By: XIANG Escitalopram Oxalate (Escitalopram Oxalate 5 Mg Tablet) 5 mg PO DAILY [facility] Hydrochlorothiazide (Hydrochlorothiazide 12.5 Mg Tablet) 12.5 mg PO DAILY [facility]; Protocol Sodium Chloride (Ns) 1,000 mls @ 75 mls/hr IVCONT .[id number] [facility] Last Admin: 07/28/24 18:42 Dose: 75 mls/hr Documented By: DEANGELO Levothyroxine Sodium (Levothyroxine Sodium 88 Mcg Tablet) 88 mcg PO DAILY@0600 [facility] Last Admin: 07/29/24 05:53 Dose: 88 mcg Documented By: KARMA Magnesium Hydroxide (Milk Of Magnesia 30 Ml Oral.Susp) 30 ml PO DAILY PRN PRN Reason: Constipation Melatonin (Melatonin 3 Mg Tablet) 6 mg PO BEDTIME PRN PRN Reason: Insomnia Pt Own (Memantine 28 Mg Capsule,Sprinkle ,Er 24hr) 28 mg PO DAILY [facility]ANDY Potassium Chloride (Potassium Chloride Er 20 Meq Tab.Er.Prt) 40 meq PO ONCE ONE Stop: 07/29/24 08:59 Sodium Chloride (0.9 % Sodium Chloride Flush 3 Ml Syringe) 3 ml IVFLUSH QSHIFT [facility] Last Admin: 07/28/24 23:58 Dose: Not Given Documented By: KARMA Non-Admin Reason: IV Running Vitamin D (Cholecalciferol (Vitamin D3) 25 Mcg Tablet) 25 mcg PO DAILY [facility] Labs 07/29/24 05:19 07/29/24 05:19 Labs: Laboratory Results - last 24 hr 07/28/24 07/29/24 08:07 05:19 MCV 90.6 MCH 29.9 MCHC 33.0 RDW 12.5 Plt Count 167 MPV 10.8 Absolute Nucleated RBC 0.000 Nucleated RBC % (auto) 0.0 Anion Gap 19 18 Estim Creat Clear Calc 39.5 51.5 Estimated GFR 47 > 60 Random Glucose 115 Fasting Glucose 81 Calcium 9.9 8.8 D Magnesium 2.0 Total Bilirubin 0.8 Direct Bilirubin 0.3 AST 24 ALT 15 Alkaline Phosphatase 29 L Total Creatine Kinase 129 Total Protein 7.5 Albumin 4.1 Influenza Type A (PCR) NEGATIVE Influenza Type B (PCR) NEGATIVE RSV RNA Qual (PCR) NEGATIVE SARS-CoV-2 RNA (RT-PCR) NEGATIVE Assessment and Plan (1) Pneumonia: Status: Acute Plan 78F PMH unspecified dementia, hypothryoid, hyperlipidemia, hypertension presented with lethargy Acute metabolic encephalopathy and diffuse weakness due to pneumonia - multifocal right-sided continue Ceftriaxone azithromycin, follow up cultures Physical therapy Unspecified dementia memantine, aricept acute hypokalemia replace and monitor Hyperlipidemia statin Hypertension hctz Hypothyroid Levothyroxine DVT prophylaxis with Lovenox Full Code reason for continued hospitalization:weakness, iv abx for pneumonia Quality Stroke Does the patient have a stroke diagnosis?: No VTE Prior VTE?: No VTE Risk Level:: Medical - moderate - high VTE Device Contraindication: Treatment Not Indicated VTE Drug Contraindication: N/A - Med Ordered
--- NOTE | 2024-07-29 09:05 | PC.NURSE ---
Daughter brought home med Memantine to bedside. Pharmacy notified and instructed to put in pt specific bin to verify.
[2024-07-29] MEDS: Escitalopram Oxalate 5 MG TABLET PO (09:45)
[2024-07-29] MEDS: Cholecalciferol (Vitamin D3) 25 MCG TABLET PO (09:45)
[2024-07-29] MEDS: Atorvastatin Calcium 10 MG TABLET PO (09:45)
[2024-07-29] MEDS: Potassium Chloride ER 20 MEQ TAB.ER.PRT 40 MEQ PO (09:45)
[2024-07-29] MEDS: hydroCHLOROthiazide 12.5 MG TABLET PO (09:46)
[2024-07-29] MEDS: MEMANTINE 28 MG 28 EACH PO (09:47)
[2024-07-29] MEDS: 0.9 % Sodium Chloride Flush 3 ML SYRINGE IVFLUSH (09:48)
[2024-07-29] MEDS: 0.9 % Sodium Chloride 1,000 ML 75 ML IVCONT ×2 (09:54→23:26)
[2024-07-29 10:28] VITALS: BP 133/62; PULSE 88; O2SAT 93
[2024-07-29] MEDS: Acetaminophen 325 MG TABLET 650 MG PO (10:49)
[2024-07-29 15:47] VITALS: BP 111/53; PULSE 74; RESP 16; TEMP 36.8; O2SAT 94
[2024-07-29] MEDS: Enoxaparin Sodium 40 MG/0.4 ML SYRINGE SUBCUT (17:23)
[2024-07-29] MEDS: cefTRIAXone sodium 1 GM VIAL IVPUSH (17:23)
[2024-07-29] MEDS: Azithromycin 500 MG TABLET PO (17:23)
--- NOTE | 2024-07-29 18:33 | PC.NURSE ---
pt bladder scanned for 515ml @1610. MD Mcclendon made aware. straight cath for 500ml concentrated yellow urine @1630. pt tolerated well.
[2024-07-29 18:58] VITALS: BP 114/56; PULSE 83; RESP 16; TEMP 36.1; O2SAT 96
[2024-07-30] MEDS: Acetaminophen 325 MG TABLET 650 MG PO (01:45)
--- NOTE | 2024-07-30 02:06 | PC.NURSE ---
0140- Patient out of bed to commode to attempt to void; voided 275ml back in evening time, then 50ml, 25ml, and 25ml only again at 0100. Patient denied bladder pain or pressure, but felt she needed to void and with her intermittent cough was afraid she would leak. Colleen pad offered and also reassurance that there was a bed pad in place. Pt continued to attempt oob often and stating she needed the bathroom. Bladder scan PVR of 25ml showed 406ml, hospitalist updated to continue to monitor or st cath pt. Hospitalist responded to do a st cath, and results were for 500ml yellow urine, pt tolerated procedure well. Medicated shortly afterwards with PO Tylenol for stated mild headache and will continue to monitor
[2024-07-30 03:05] VITALS: BP 132/61; PULSE 79; RESP 18; TEMP 36.8; O2SAT 94
[2024-07-30] MEDS: Levothyroxine Sodium 88 MCG TABLET PO (05:32)
[2024-07-30 08:00] VITALS: BP 135/63; PULSE 74; RESP 16; TEMP 36.1; O2SAT 93
--- NOTE | 2024-07-30 09:07 | P.PNIM_ITS ---
Subjective Subjective Date of Service: 07/30/24 Interval History: Feeling better, urinary retention needing straight catheterization x2 Physical Exam 2 Vital Signs: Vital Signs: Last Vital Signs Temp 97.0 F 07/30/24 08:00 Pulse 74 07/30/24 08:00 Resp 16 07/30/24 08:00 BP 135/63 07/30/24 08:00 Pulse Ox 93 07/30/24 08:00 O2 Del Method Room Air 07/30/24 08:00 BMI result Body Mass Index 33.2 General: AO X 2, no acute distress Resp: CTA bilateral, no accessory muscles used CVS: S1,S2,RRR GI: soft, non tender, non distended Neuro: motor grossly intact, alert Psych: appropriate affect, poor insight Objective Data Active Medications Acetaminophen (Acetaminophen 325 Mg Tablet) 650 mg PO Q6H PRN PRN Reason: Pain, Mild (Pain Scale 1-3), fever or headache Last Admin: 07/30/24 01:45 Dose: 650 mg Documented By: KARMA Atorvastatin Calcium (Atorvastatin Calcium 10 Mg Tablet) 10 mg PO DAILY [facility] Last Admin: 07/29/24 09:45 Dose: 10 mg Documented By: VIVIAN Azithromycin (Azithromycin 500 Mg Tablet) 500 mg PO Q24H [facility] Last Admin: 07/29/24 17:23 Dose: 500 mg Documented By: VIVIAN Calcium Carbonate (Calcium Carbonate 750 Mg Tab.Chew) 750 mg PO Q4H PRN PRN Reason: Heartburn Ceftriaxone Sodium (Ceftriaxone Sodium 1 Gm Vial) 1 gm IVPUSH Q24H [facility] Last Admin: 07/29/24 17:23 Dose: 1 gm Documented By: VIVIAN Enoxaparin Sodium (Enoxaparin Sodium 40 Mg/0.4 Ml Syringe) 40 mg SUBCUT Q24H [facility] Last Admin: 07/29/24 17:23 Dose: 40 mg Documented By: VIVIAN Escitalopram Oxalate (Escitalopram Oxalate 5 Mg Tablet) 5 mg PO DAILY [facility] Last Admin: 07/29/24 09:45 Dose: 5 mg Documented By: VIVIAN Hydrochlorothiazide (Hydrochlorothiazide 12.5 Mg Tablet) 12.5 mg PO DAILY [facility]; Protocol Last Admin: 07/29/24 09:46 Dose: 12.5 mg Documented By: VIVIAN Sodium Chloride (Ns) 1,000 mls @ 75 mls/hr IVCONT .[id number] [facility] Last Admin: 07/29/24 23:26 Dose: 75 mls/hr Documented By: KARMA Levothyroxine Sodium (Levothyroxine Sodium 88 Mcg Tablet) 88 mcg PO DAILY@0600 [facility] Last Admin: 07/30/24 05:32 Dose: 88 mcg Documented By: KARMA Magnesium Hydroxide (Milk Of Magnesia 30 Ml Oral.Susp) 30 ml PO DAILY PRN PRN Reason: Constipation Melatonin (Melatonin 3 Mg Tablet) 6 mg PO BEDTIME PRN PRN Reason: Insomnia Pt Own (Memantine 28 Mg Capsule,Sprinkle ,Er 24hr) 28 mg PO DAILY [facility] Last Admin: 07/29/24 09:47 Dose: 28 mg Documented By: VIVIAN Sodium Chloride (0.9 % Sodium Chloride Flush 3 Ml Syringe) 3 ml IVFLUSH QSHIFT [facility] Last Admin: 07/29/24 23:28 Dose: Not Given Documented By: KARMA Non-Admin Reason: IV Running Vitamin D (Cholecalciferol (Vitamin D3) 25 Mcg Tablet) 25 mcg PO DAILY [facility] Last Admin: 07/29/24 09:45 Dose: 25 mcg Documented By: VIVIAN Labs 07/29/24 05:19 07/29/24 05:19 Microbiology Microbiology Results: Microbiology 07/28/24 15:29 Blood Culture - Preliminary Blood - Venous No growth after 24 hours. 07/28/24 15:29 Blood Culture - Preliminary Blood - Venous No growth after 24 hours. Assessment and Plan (1) Pneumonia: Status: Acute Plan 78F PMH unspecified dementia, hypothryoid, hyperlipidemia, hypertension presented with lethargy Acute metabolic encephalopathy and diffuse weakness due to pneumonia - multifocal right-sided continue Ceftriaxone azithromycin, follow up cultures Physical therapy recommended short-term rehab Urinary retention P.r.n. straight cath for now Unspecified dementia memantine, aricept acute hypokalemia replace and monitor Hyperlipidemia statin Hypertension hctz Hypothyroid Levothyroxine DVT prophylaxis with Lovenox Full Code reason for continued hospitalization:weakness, iv abx for pneumonia Quality Stroke Does the patient have a stroke diagnosis?: No VTE Prior VTE?: No VTE Risk Level:: Medical - moderate - high VTE Device Contraindication: Treatment Not Indicated VTE Drug Contraindication: N/A - Med Ordered
[2024-07-30] MEDS: 0.9 % Sodium Chloride Flush 3 ML SYRINGE IVFLUSH ×2 (09:31→17:15)
[2024-07-30 09:32] VITALS: BP 121/57
[2024-07-30] MEDS: Escitalopram Oxalate 5 MG TABLET PO (09:32)
[2024-07-30] MEDS: hydroCHLOROthiazide 12.5 MG TABLET PO (09:32)
[2024-07-30] MEDS: Atorvastatin Calcium 10 MG TABLET PO (09:32)
--- NOTE | 2024-07-30 09:32 | MHC.CM.PN ---
Addendum entered by Merary Duarte 07/30/24 15:11: [facility] requests a Nurse 2 Nurse report [phone]. [facility] room 408. Addendum entered by Merary Duarte 07/30/24 13:49: Patient will dc to [facility]. Transport has been pre-booked with Tony. 11am hand picker @ [facility]. Original Note: Per MD no discharge today. Patient with PNA continues to require IV ABX. She has accepted a bed offer from [facility] for STR. DP STR @ [facility] via BLS
[2024-07-30] MEDS: MEMANTINE 28 MG 28 EACH PO (09:35)
[2024-07-30] MEDS: Cholecalciferol (Vitamin D3) 25 MCG TABLET PO (09:35)
[2024-07-30] MEDS: 0.9 % Sodium Chloride 1,000 ML 75 ML IVCONT (14:55)
[2024-07-30 15:09] VITALS: BP 139/82; PULSE 77; RESP 16; TEMP 36.2; O2SAT 96
[2024-07-30] MEDS: Enoxaparin Sodium 40 MG/0.4 ML SYRINGE SUBCUT (17:17)
[2024-07-30] MEDS: cefTRIAXone sodium 1 GM VIAL IVPUSH (17:19)
[2024-07-30] MEDS: Azithromycin 500 MG TABLET PO (17:19)
[2024-07-30 19:02] VITALS: BP 140/75; PULSE 86; RESP 18; TEMP 36.8; O2SAT 95
--- NOTE | 2024-07-31 01:28 | PC.NURSE ---
Pt amb to bathroom with walker voided not measured.Bladder scanned for 217cc.wWill continue to monitor.
[2024-07-31 03:24] VITALS: BP 159/79; PULSE 74; RESP 16; TEMP 36.5; O2SAT 97
[2024-07-31] MEDS: Levothyroxine Sodium 88 MCG TABLET PO (05:45)
[2024-07-31 07:49] VITALS: BP 163/73; PULSE 68; RESP 16; TEMP 36.2; O2SAT 98
[2024-07-31] MEDS: Cholecalciferol (Vitamin D3) 25 MCG TABLET PO (08:20)
[2024-07-31] MEDS: hydroCHLOROthiazide 12.5 MG TABLET PO (08:20)
[2024-07-31] MEDS: Atorvastatin Calcium 10 MG TABLET PO (08:20)
[2024-07-31] MEDS: Escitalopram Oxalate 5 MG TABLET PO (08:20)
[2024-07-31] MEDS: MEMANTINE 28 MG 28 EACH PO (08:21)
--- NOTE | 2024-07-31 09:28 | P.DS_ITS ---
DS: Providers Provider Date of Service: 07/31/24 Date of admission: 07/28/24 15:29 Date of discharge: 07/31/24 Primary care physician: Roxanna Maldonado MD DS: Diagnosis Discharge Diagnosis (1) Pneumonia: Status: Acute DS: Summary Hospital Course Hospital Course: from initial hpi: 78F PMH unspecified dementia, hypothryoid, hyperlipidemia, hypertension presented with lethargy. Patient's symptoms began about 3 days prior to presentation associated with cough and significant diffuse weakness inability to ambulate. On day of presentation patient unable to get out of bed so ambulance was called. In ED found to have multifocal pneumonia on right side and low- grade fever. Started on ceftriaxone. hospital course: Patient was admitted for acute metabolic encephalopathy and diffuse weakness due to multifocal right-sided pneumonia. Was treated with ceftriaxone azithromycin and mental status improved, still fairly weak and worked with physical therapy recommended short-term rehab to which patient will be discharged on 5 more days of cefuroxime and azithromycin. Repeat imaging in about 4 weeks. Course complicated by urinary retention requiring straight catheterization, expected to improve with ambulation should be monitored. Unspecified dementia was treated with memantine and Aricept. Also had acute hypokalemia which was replaced. For hyperlipidemia continued on statin. For hypertension continued on hydrochlorothiazide. For hypothyroidism continued on levothyroxine. Time Attestation Discharge Coordination Time (in mins): 33 Quality: Safe Use of Opioids Does Pt have an Active Cancer Diagnosis on the Problem List?: No Quality: Stroke Does the patient have a stroke diagnosis?: No Physical Exam Vital Signs: Vital Signs: Last Vital Signs Temp 97.1 F 07/31/24 07:49 Pulse 68 07/31/24 07:49 Resp 16 07/31/24 07:49 BP 163/73 H 07/31/24 07:49 Pulse Ox 98 07/31/24 07:49 O2 Del Method Room Air 07/31/24 07:49 BMI result Body Mass Index 33.2 General: AO X 2, no acute distress Resp: CTA bilateral, no accessory muscles used CVS: S1,S2,RRR GI: soft, non tender, non distended Neuro: motor grossly intact, alert Psych: appropriate affect, poor insight DS: Data Data Completed and Pending Labs on day of discharge: Preliminary micro results at discharge 07/28/24 15:29 Blood Culture - Preliminary Blood - Venous No growth after 48 hours. 11/06/24 15:29 Blood Culture - Preliminary Blood - Venous No growth after 48 hours. Discharge Plan Discharge Anticipated Discharge Date/Time: 07/31/24 09:25 Patient Disposition: Xfer SNF Discharge Diagnosis: pna Referrals: [facility] [Outside] - 1 Week Roxanna Maldonado MD [Primary Care Provider] - 1 Week Discharge Medications: New azithromycin 500 mg Tablet 500 mg PO Q24H 5 Days Qty: 0 0RF cefuroxime axetil 500 mg tablet 500 mg PO BID 5 Days Qty: 10 0RF Continued memantine 28 mg capsule,sprinkle,ER 24hr 28 mg PO DAILY Qty: 30 6RF levothyroxine 88 mcg tablet 88 mcg PO DAILY@0600 hydrochlorothiazide 12.5 mg tablet 12.5 mg PO DAILY cholecalciferol (vitamin D3) 25 mcg (1,000 unit) capsule 25 mcg PO DAILY simvastatin 10 mg tablet 10 mg PO DAILY citalopram 10 mg tablet 10 mg PO DAILY Qty: 90 2RF Discharge Orders: Discharge Order (Routine); Ordered 07/31/24 Ordered By: Roni Mcclendon Diet: Advance to usual diet Activity on Discharge: As tolerated Stand Alone Forms: Patient Portal Discharge page Print Language: Vietnamese Care Plan Goals: recovery Health Concerns: pneumonia Plan of Treatment: 5 more days chidi stark follow up repeat CT in about 4 weeks STR Assessment: see above Discharge Date/Time: 07/31/24 11:06
--- NOTE | 2024-07-31 10:15 | MHC.CM.PN ---
Addendum entered by Kathie Aponte 07/31/24 10:19: DCS SET TO SNF VIA [facility] Original Note: PT SET TO DC TO [facility] FOR STR AT 1100 HOURS TODAY VIA [facility] NEW HCP COMPLETED AT SNFS REQUEST, NOW ON FILE
== END 2024-07-31 11:06 | disposition skilled nursing facility (03) | DRG 193 ==
LOC: HO.ED 14:59 → HO.EDOVER 15:30 → HO.S3 19:19
PROVIDERS: Admitting Provider Internal Medicine; Emergency Provider Emergency Medicine; PCP Internal Medicine; Visit Provider Internal Medicine
DX: J18.9 Pneumonia, unspecified organism (principal); G93.41 Metabolic encephalopathy; F03.90 Unspecified dementia, unspecified severity, without behavioral disturbance, psychotic disturbance, mood disturbance, and anxiety; E87.6 Hypokalemia; E03.9 Hypothyroidism, unspecified; E78.5 Hyperlipidemia, unspecified; R33.9 Retention of urine, unspecified; Z20.822 Contact with and (suspected) exposure to COVID-19; Z79.890 Hormone replacement therapy; Z79.899 Other long term (current) drug therapy
CPT/HCPCS: 0241U; 36415; 70450; 71045; 71260; 80048; 80076; 81001; 82550; 83735; 84484; 85025; 85027; 87040; 93005; 97162; 99285; J0456; J0696; J1200; J1650; Q9967

== ENCOUNTER → 2024-07-28 07:38 | Outpatient (BNV) | payer MEDICARE, BC, SELFPAY | PROVIDERS: Admitting Provider Internal Medicine; Emergency Provider Emergency Medicine; PCP Internal Medicine; Visit Provider Internal Medicine Cardiovascular Disease | DX: I45.19 Other right bundle-branch block (principal); I49.1 Atrial premature depolarization; R94.31 Abnormal electrocardiogram [ECG] [EKG] | CPT/HCPCS: 93010 ==

== ENCOUNTER → 2024-07-28 07:58 | Outpatient (BNV) | payer MEDICARE, BC, SELFPAY | PROVIDERS: Emergency Provider Emergency Medicine; PCP Internal Medicine; Visit Provider Radiology Diagnostic Radiology | DX: R91.8 Other nonspecific abnormal finding of lung field (principal) | CPT/HCPCS: 71045; 71260 ==

== ENCOUNTER → 2024-07-28 15:29 | Outpatient (BNV) | payer MEDICARE, BC, SELFPAY | PROVIDERS: Admitting Provider Internal Medicine; Emergency Provider Emergency Medicine; PCP Internal Medicine; Visit Provider Internal Medicine | DX: J18.9 Pneumonia, unspecified organism (principal); G93.41 Metabolic encephalopathy | CPT/HCPCS: 99222; 99232; 99239 ==

== ENCOUNTER 2024-08-05 14:04 | Emergency (ER) | payer MEDICARE, BC, SELFPAY ==
--- NOTE | 2024-08-05 | ECG_ITS ---
Test Reason : DIZZY Blood Pressure : / mmHG Vent. Rate : 094 BPM Atrial Rate : 094 BPM P-R Int : 142 ms QRS Dur : 110 ms QT Int : 388 ms P-R-T Axes : 046 035 026 degrees QTc Int : 485 ms Normal sinus rhythm Right bundle branch block Abnormal ECG When compared with ECG of 28-JUL-2024 08:15, Premature atrial complexes are no longer Present Referred By: Generic ED Physician Electronically Signed By:Cassius Butterfield
--- NOTE | ~2024-08-05 | XR_ITS ---
EXAMINATION: XR CHEST CLINICAL INFORMATION: Weakness COMPARISON: None available. TECHNIQUE: Frontal view of the chest was obtained. FINDINGS: No significant abnormality is noted involving the heart, lungs, mediastinum, bony thorax or soft tissues. XR/XR chest 1V IMPRESSION: Unremarkable examination. Electronically signed by: Harjinder Lopez MD 08/05/2024 05:14 PM [facility]
[2024-08-05 14:20] VITALS: BP 138/65; PULSE 92; RESP 20; TEMP 37.5; O2SAT 96; BMI 27.5
--- NOTE | 2024-08-05 15:35 | ED.GENADULT ---
HPI - General Adult General Chief complaint: General Medical Stated complaint: Dizziness/ Nausea from SNF per EMS Time Seen by Provider: 08/05/24 15:32 Source: patient, EMS and old records reviewed Mode of arrival: EMS Limitations: no limitations History of Present Illness ED Provider: KAREN GREEN narrative: 78 yo female with PMH of anxiety, pneumonia, cognitive disorder, HTN, hyperlipidemia, hypothyroidism who was just admitted here until 07/31 for multifocal pneumonia s/p IV abx and DC on ceftin and doxy now here with c/o malaise, fatigue, tired after COVID booster yesterday. She denies pain, more confusion. She is just really tired and weak. She has not had a reaction to COVID shot before. She denies n/v/d. Staff at acute rehab found her sitting on the toilet and she appeared, pale, weak, hot to touch and then they reported a high HR though family is not sure what the rate was. MD complaint: fatigue Onset (ago): day(s) (1) Radiation: non-radiation Severity: moderate Quality: dull Relieving factors: rest Exacerbating factors: movement Associated symptoms: weakness Treatments prior to arrival: none Related Data Home Medications ?Medication ?Instructions ?Recorded ?Confirmed cholecalciferol (vitamin D3) 25 25 mcg PO DAILY 10/08/21 07/28/24 mcg (1,000 unit) capsule hydrochlorothiazide 12.5 mg tablet 12.5 mg PO DAILY 10/08/21 07/28/24 simvastatin 10 mg tablet 10 mg PO DAILY 10/08/21 07/28/24 levothyroxine 88 mcg tablet 88 mcg PO DAILY@0600 07/28/24 07/28/24 Previous Rx's ?Medication ?Instructions ?Recorded citalopram 10 mg tablet 10 mg PO DAILY #90 tabs 10/13/23 memantine 28 mg capsule 28 mg PO DAILY #30 ea 07/12/24 sprinkle,extended release 24hr azithromycin 500 mg tablet 500 mg PO Q24H 5 days #0 tabs 07/31/24 cefuroxime axetil 500 mg tablet 500 mg PO BID 5 days #10 tabs 07/31/24 Allergies Allergy/AdvReac Type Severity Reaction Status Date / Time No Known Allergies Allergy Verified 08/05/24 14:24 Review of Systems Review of Systems: Constitutional : No Fever, No Chills, pos Fatigue ENT/Mouth : No sore throat, No Rhinorrhea Eyes: No Eye Pain, No Swelling, No Redness Cardiovascular : No Chest Pain, No SOB, No Dyspnea on Exertion Respiratory : No Cough, No Sputum Gastrointestinal : No Nausea, No Vomiting, No Diarrhea, No abdominal Pain Genitourinary : No Dysuria, No Urinary Frequency, No Hematuria, Musculoskeletal : No joint pain, No Myalgias, No Joint Swelling Skin : No Skin Lesions, No rash Neuro : pos Weakness, No Numbness, No Dizziness, noHeadache All other systems reviewed and are negative [facility] Past Medical History Attestation statement: The following information was validated with the patient. Source: old records reviewed Medical History Dementia Cognitive change Gait disorder Appendix carcinoma Cancer Back pain Hypothyroidism Hyperlipidemia HTN (hypertension) Surgical History Hx of appendectomy H/O bilateral oophorectomy Family History Family History Mother HTN (hypertension) Diabetes mellitus Cancer Thyroid disorder Dementia Father Dementia Social History Social History Household Members: Spouse Housing: House Do you presently have visiting nurse or other home services: No Unable to assess alcohol history related to: Unable to respond Alcohol intake: never Patient Tobacco Use Status: Never used Tobacco Smoked in Last 30 Days: No e-Cigarette/Vaping Use: Never Used Second Hand Smoke Exposure: No Use of substances other than those prescribed or required for medical reasons: No Advance Directives: Yes Advance Directives on File: Yes Advance Directives Date on File: 08/02/24 Do you have a plan to hurt others: No Plan service: No Physical Exam ED Vital Signs: Vital Signs - 24 hr 08/05/24 14:20 08/05/24 17:14 Temperature 99.5 F 99.1 F Pulse Rate 92 91 Respiratory Rate 20 16 Blood Pressure 138/65 153/65 H Pulse Oximetry 96 94 Oxygen Delivery Method Room Air Room Air BMI result Body Mass Index 27.5 Appearance: Alert. Oriented X2. No acute distress. Eyes: Pupils equal, round and reactive to light. ENT: Pharynx normal. Neck: Normal inspection. Neck supple. CVS: Normal heart rate and rhythm. Pulses normal. Respiratory: No respiratory distress. Breath sounds normal. Abdomen: Soft and non-tender. Skin: Skin warm and dry. Normal skin color. Normal skin turgor. Extremities: No lower extremity edema. No calf ttp Neuro: Oriented X 2. No motor deficit. No sensory deficit. Medications Administered Discontinued Medications Generic Name Dose Route Start Last Admin Trade Name Freq PRN Reason Stop Dose Admin Acetaminophen 650 mg 08/05/24 16:39 08/05/24 17:17 Acetaminophen 325 Mg Tablet PO 08/05/24 16:40 650 mg ONCE ONE Administration Medical Decision Making Medical Decision Making [facility] Narrative: 78 yo female with PMH of anxiety, pneumonia, cognitive disorder, HTN, hyperlipidemia, hypothyroidism here with c/o fatigue, malaise, not feeling well after getting COVID shot. She denies trauma, new confusion, n/v/d. She was not given tylenol or motrin [employer]. She just recovered from pneumonia and was DC here on 07/31 still with abx. She could possibly have worsening disease, viral syndrome or just a post COVID shot reaction after she was so newly recovering from pneumonia. Labs, CXR, UA ordered. Differential Diagnosis Differential Diagnoses: The differential diagnosis associated with the presentation includes post COVID reaction, viral syndrome, pneumonia, anemia, dehydration Admission/Observation Consideration of admission/observation: Escalation of care including admission/observation considered labs mild dehydration no wbc count no pneumonia no UTI suspect post covid shot reaction Lab Data [facility] Lab Attestation statement: I reviewed the patient's lab results. 08/05/24 16:25 08/05/24 16:25 Labs: Lab Results 08/05/24 08/05/24 Range/Units 16:25 16:45 WBC 9.5 (4.8-10.8) X10*3/uL RBC 4.25 (4.20-5.50) X10*6/uL Hgb 13.1 (12.0-16.0) g/dl Hct 37.2 (37.0-47.0) % MCV 87.5 (80.0-98.0) fL MCH 30.8 (27.0-33.0) pg MCHC 35.2 H (31.0-35.0) g/dl RDW 12.1 (11.0-16.0) % Plt Count 257 D (160-400) X10*3/uL MPV 9.8 (9.4-12.3) fL Immature Gran % (Auto) 0.5 H (0.0-0.4) % Neut % (Auto) 85.1 H (45-73) % Lymph % (Auto) 8.0 L (20-40) % [place] % (Auto) 5.8 (2-11) % Eos % (Auto) 0.1 (0-4) % Baso % (Auto) 0.5 (0-2) % Lymph # (Auto) 0.8 L (1.2-4.9) X10*3/uL [place] # (Auto) 0.6 (0.1-1.2) X10*3/uL Eos # (Auto) 0.0 (0.0-0.4) X10*3/uL Baso # (Auto) 0.1 (0.0-0.2) X10*3/uL Abs Immat Gran (auto) 0.05 H (0.00-0.03) X10*3/uL Absolute Neuts (auto) 8.1 (2.0-8.3) x10*3/uL Absolute Nucleated RBC 0.000 (0.0-0.012) X10*3/uL Nucleated RBC % (auto) 0.0 (0.0-0.2) /100WBC Sodium 133 L (135-145) mmol/L Potassium 3.7 (3.3-5.1) mmol/L Chloride 95 L (96-108) mmol/L Carbon Dioxide 32 H (22-29) mmol/L Anion Gap 10 L (12-20) BUN 16 (9-16) mg/dL Creatinine 0.99 (0.5-1.4) mg/dL Estim Creat Clear Calc 45.6 Estimated GFR 54 Random Glucose 110 (60-115) mg/dL Calcium 9.3 (8.4-10.2) mg/dL Magnesium 2.0 (1.6-2.6) mg/dL Total Bilirubin 0.5 (0.0-1.0) mg/dL Direct Bilirubin 0.2 (0.0-0.5) mg/dL AST 29 (5-31) U/L ALT 24 (0-31) U/L Alkaline Phosphatase 27 L (39-117) U/L Total Protein 6.9 (6.5-8.0) g/dL Albumin 3.9 (3.5-5.0) g/dL Lipase 21 (8-78) U/L Urine Color Yellow Urine Appearance Clear Urine pH 6.5 (5.0-9.0) Ur Specific [place] 1.010 (1.005-1.025) Urine Protein Negative (Neg-Trace) mg/dL Urine Glucose (UA) Negative (Negative) mg/dL Urine Ketones Negative (Negative) mg/dL Urine Blood Moderate (2+) H (Negative) Urine Nitrite Negative (Negative) Ur Leukocyte Esterase Trace H (Negative) Urine RBC 11-20 H (0-2) /HPF Urine WBC 0-5 (0-5) /HPF Ur Squamous Epith Cells 0-2 (0-2) /HPF Urine Bacteria None Seen (None Seen) Hyaline Casts 0-2 (0-2) /LPF COVID-19 (ANYI) Negative (Negative) COVID-19 Clin Com See Note Independent Interpretation I performed an independent interpretation of an: EKG and Plain X-Ray (normal ) Interpretation: Rate: 94 Rhythm: NSR [place]: normal Normal P waves. Normal [place]. RBBB ST T wave : no NOA, inverted t wave V1 qTC:485 prior studies: no change from prior The study has been interpreted contemporaneously by me. . Radiology Impression Discussion of test interpretation with radiology: I have reviewed the radiologist's reading. Independent Historian Clinical information obtained from an independent historian. History obtained from or confirmed by: Other (family) External Record Review External record reviewed: Inpatient record Discharge Plan Discharge Clinical Impression: Weakness Patient Disposition: Home, Self-Care Instructions: Weakness (ED) Additional Instructions: labs reassuring mild dehydration negative covid test urine no infection chest xray normal suspect this could be related to covid shot - please monitor her for any worsening symptoms - difficulty breathing, chest pain, vomiting diarrhea - seek immediate care trace blood in the urine make sure your doctor monitors this regularly Prescriptions: No Action memantine 28 mg capsule,sprinkle,ER 24hr 28 mg PO DAILY Qty: 30 6RF levothyroxine 88 mcg tablet 88 mcg PO DAILY@0600 azithromycin 500 mg Tablet 500 mg PO Q24H 5 Days Qty: 0 0RF cefuroxime axetil 500 mg tablet 500 mg PO BID 5 Days Qty: 10 0RF hydrochlorothiazide 12.5 mg tablet 12.5 mg PO DAILY cholecalciferol (vitamin D3) 25 mcg (1,000 unit) capsule 25 mcg PO DAILY simvastatin 10 mg tablet 10 mg PO DAILY citalopram 10 mg tablet 10 mg PO DAILY Qty: 90 2RF Print Language: Maori
[2024-08-05 16:34] LABS: MANUAL DIFF FLAG NO
[2024-08-05 16:36] LABS: Basophils Absolute Auto 0.1 X10*3/uL (0.0-0.2); Basophils Percent Auto 0.5 % (0-2); Eosinophils Percent Auto 0.1 % (0-4); Hematocrit 37.2 % (37.0-47.0); Hemoglobin 13.1 g/dl (12.0-16.0); Imm Gran Abs Auto 0.05 X10*3/uL (0.00-0.03); Imm Gran Pct Auto 0.5 % (0.0-0.4); Lymphocytes Absolute Auto 0.8 X10*3/uL (1.2-4.9); Mean Corpuscular HGB Conc 35.2 g/dl (31.0-35.0); Mean Corpuscular Hemoglobin 30.8 pg (27.0-33.0); Mean Corpuscular Volume 87.5 fL (80.0-98.0); Mean Platelet Volume 9.8 fL (9.4-12.3); Monocytes Absolute Auto 0.6 X10*3/uL (0.1-1.2); Monocytes Percent Auto 5.8 % (2-11); Neutrophils Absolute Auto 8.1 x10*3/uL (2.0-8.3); Neutrophils Percent Auto 85.1 % (45-73); Platelet Count 257 X10*3/uL (160-400); Red Blood Count 4.25 X10*6/uL (4.20-5.50); Red Cell Distribution Width 12.1 % (11.0-16.0); White Blood Count 9.5 X10*3/uL (4.8-10.8)
[2024-08-05 16:50] LABS: Alanine Aminotransferase 24 U/L (0-31); Albumin Level 3.9 g/dL (3.5-5.0); Alkaline Phosphatase 27 U/L (39-117); Anion Gap 10 (12-20); Aspartate Amino Transferase 29 U/L (5-31); Bilirubin Direct 0.2 mg/dL (0.0-0.5); Bilirubin Total 0.5 mg/dL (0.0-1.0); Blood Urea Nitrogen 16 mg/dL (9-16); Calcium 9.3 mg/dL (8.4-10.2); Carbon Dioxide 32 mmol/L (22-29); Chloride 95 mmol/L (96-108); Creatinine Clr Calc Pharmacy 45.6; Estimated Glomerular Filt Rate 54; Glucose Random 110 mg/dL (60-115); Lipase 21 U/L (8-78); Potassium 3.7 mmol/L (3.3-5.1); Sodium 133 mmol/L (135-145); Total Protein 6.9 g/dL (6.5-8.0)
[2024-08-05 16:54] LABS: Appearance Urine Clear; Color Urine Yellow; Glucose Urine UA Negative (Negative); Leukocyte Esterase Urine Trace (Negative); Nitrite Urine Negative (Negative); PH 6.5 (5.0-9.0); UMIC TRIGGER UACC YES; Urine Blood Moderate (2+) (Negative); Urine Ketones Negative (Negative); Urine Protein Negative (Neg-Trace)
[2024-08-05 17:08] LABS: COVID-19 Test Negative (Negative); IDNOW Serial# 152EDE1D
[2024-08-05 17:14] VITALS: BP 153/65; PULSE 91; RESP 16; TEMP 37.3; O2SAT 94
[2024-08-05] MEDS: Acetaminophen 325 MG TABLET 650 MG PO (17:17)
[2024-08-05 17:25] LABS: Bacteria Urine None Seen (None Seen); Hyaline Casts Urine 0-2 /LPF (0-2); Squamous Epithelial Cell Urine 0-2 /HPF (0-2); WBC Urine 0-5 /HPF (0-5)
[2024-08-05 18:52] VITALS: BP 153/65; PULSE 91; RESP 16; TEMP 37.3; O2SAT 94
== END 2024-08-05 18:52 | disposition home or self-care (01) ==
PROVIDERS: Emergency Provider Emergency Medicine; PCP Internal Medicine
DX: R42 Dizziness and giddiness (principal); I10 Essential (primary) hypertension; R11.2 Nausea with vomiting, unspecified; I45.10 Unspecified right bundle-branch block; R94.31 Abnormal electrocardiogram [ECG] [EKG]; Z11.52 Encounter for screening for COVID-19; Z79.899 Other long term (current) drug therapy
CPT/HCPCS: 36415; 51701; 71045; 80048; 80076; 81001; 81003; 83690; 83735; 85025; 87635; 93005; 99283; 99284

== ENCOUNTER → 2024-08-05 14:26 | Outpatient (BNV) | payer MEDICARE, BC, SELFPAY | PROVIDERS: Emergency Provider Emergency Medicine; PCP Internal Medicine; Visit Provider Internal Medicine Cardiovascular Disease | DX: R42 Dizziness and giddiness (principal); I45.10 Unspecified right bundle-branch block; R94.31 Abnormal electrocardiogram [ECG] [EKG] | CPT/HCPCS: 93010 ==

== ENCOUNTER 2024-10-27 14:02 | Outpatient (AMB) | payer MEDICARE, BC, SELFPAY ==
--- NOTE | 2024-10-27 14:03 | MHC.OFFVIS ---
Vital Signs 10/27/24 14:04 Height 5 ft 4 in Weight 178 lb BMI 30.6 BP 130/74 Blood Pressure Location Rt brachial Position Sitting Intake Visit Reasons: Follow up Intake Note: Patient presents for follow up. Allergies No Known Allergies Allergy (Verified 10/27/24 14:09) Medication List - Last Reconciled 10/27/24 by Stacy Neil MD azithromycin 500 mg PO Q24H 5 days cefuroxime axetil 500 mg PO BID 5 days cholecalciferol (vitamin D3) 25 mcg PO DAILY citalopram 20 mg PO DAILY hydrochlorothiazide 12.5 mg PO DAILY levothyroxine 88 mcg PO DAILY@0600 memantine 28 mg PO DAILY simvastatin 10 mg PO DAILY HPI Comments Details: 79y/o female calls for follow up.she is accompanied by her daughter. Her son and his family live with her and her .This can be stressful at times as the kids are 17-20 and 1 has autism Her daughter in law is disabled and has services. Her son and daughter in law have some substance issues.The household is very stressful.2 of her grand kids 20,19 dropped out of high school. Her cognition is same SHe reports excessive fatigue and lack of motivation Her mood is stable . .she was diagnosed with ovarian mass and during surgery diagnosed with appendix cancer . she has a follow up with oncologist She had MRI brain 09/18/21- moderate parenchymal volume loss and probably white matter changes she is accompanied by her .Her memory is stable she is less anxious with citalopram. she repeats frequently . No hallucinations. [facility] Medical History Dementia Cognitive change Gait disorder Appendix carcinoma Cancer Back pain Hypothyroidism Hyperlipidemia HTN (hypertension) Surgical History Hx of appendectomy H/O bilateral oophorectomy Family History Mother HTN (hypertension) Diabetes mellitus Cancer Thyroid disorder Dementia Father Dementia Social History Household Members: Spouse Housing: House Do you presently have visiting nurse or other home services: No Unable to assess alcohol history related to: Unable to respond Alcohol intake: never Patient Tobacco Use Status: Never used Tobacco e-Cigarette/Vaping Use: Never Used Second Hand Smoke Exposure: No Advance Directives Date on File: 08/02/24 service: No Physical Exam Vital Signs: Last Vital Signs BP 130/74 10/27/24 14:04 BMI result Body Mass Index 30.6 Const Orientation/consciousness: oriented to person and oriented to place Neuro General: oriented to person, oriented to place and moves all extremities Cranial nerves: Yes CN's II-XII intact bilaterally and Yes Normal facial strength present Cognition (Neuro): abnormal cognition Motor exam (neuro): 5/5 motor strength present throughout Psych Appearance: grossly normal Assessment & Plan Assessment & Plan (1) Cognitive disorder: Code(s): F09 - Unspecified mental disorder due to known physiological condition (2) Anxiety: Code(s): F41.9 - Anxiety disorder, unspecified Category: Medical Plan Increase citalopram 20mg qd for anxiety Continue namenda XR 28mg qd Suggested to include cognitive activities like playing cards , cross word puzzle etc in her daily activity Medications: Changed From citalopram 10 mg PO DAILY 90 tabs 2RF To citalopram 20 mg PO DAILY 30 tabs 2RF Coding Level of Care Code Est Pt Level 4 (34617) Diagnoses Cognitive disorder F09 Anxiety F41.9
[2024-10-27 14:04] VITALS: BP 130/74; BMI 30.6
--- OUTSIDE RECORDS SUMMARY | 2024-10-27 15:19 | XMS_ITS | Encounter Summary ---
Author Organization [facility] Address [address] [place] [address] Care Team Providers Care Assistant Media Planner Name Role Phone Roxanna Maldonado MD Primary Care Provider Encounter Details Date Type Department Care Team (Late st Contact Info) Description 12/03/2022 Orders Only [facility] XRay [address] [place] [address] Ara Cartagena MD [address] [place] [address] Social History Tobacco Use Types Packs/Day Years Used Date Smoking Tobacco: Never Smokeless Tobacco: Never Alcohol Use Standard Drinks/Week Comments Not Currently 0 (1 standard drink = 0.6 oz pur e alcohol) Comments Unknown Sex and Gender Information Value Date Recorded Sex Assigned at Not on file Legal Sex Female 9:46 AM EST Gender Identity Not on file Sexual Orientation Not on file documented as of this encounter Plan of Treatment Upcoming Encounters Date Type Department Care Team (Late st Contact Info) Description 11/26/2024 4:15 PM EST Telehealth [facility] [address] [place] [address] Moose Hunter: Kalpesh Winkler MD [address] [place] [id number] documented as of this encounter Visit Diagnoses Not on filedocumented in this encounter Care Teams Assistant Media Planner Relationship Specialty Start Date End Date Roxanna Maldonado MD PCP - General 11/22/22 documented as of this encounter
--- OUTSIDE RECORDS SUMMARY | 2024-10-27 15:20 | XMS_ITS | Encounter Summary ---
Author Organization [facility] Address [address] [place] [address] Care Team Providers Care Physician Obstetrician Name Role Phone Roxanna Maldonado MD Primary Care Provider [phone] Encounter Details Date Type Department Care Team (Late st Contact Info) Description 03/18/2023 Orders Only [facility] Interventional Radiology [address] [place] [address] Lionel Cartagena MD [address] [place] [phone] Social History Tobacco Use Types Packs/Day Years Used Date Smoking Tobacco: Never Smokeless Tobacco: Never Alcohol Use Standard Drinks/Week Comments Not Currently 0 (1 standard drink = 0.6 oz pur e alcohol) Comments No Sex and Gender Information Value Date Recorded Sex Assigned at Not on file Legal Sex Female 9:46 AM EST Gender Identity Not on file Sexual Orientation Not on file documented as of this encounter Plan of Treatment Upcoming Encounters Date Type Department Care Team (Late st Contact Info) Description 11/26/2024 4:15 PM EST Telehealth [facility] [address] [place] [address] Irrigator Head: Kalpesh Winkler MD [address] [place] [phone] documented as of this encounter Visit Diagnoses Not on filedocumented in this encounter Care Teams Physician Obstetrician Relationship Specialty Start Date End Date Roxanna Maldonado MD PCP - General 11/22/22 documented as of this encounter
--- OUTSIDE RECORDS SUMMARY | 2024-10-27 15:20 | XMS_ITS | Encounter Summary ---
Author Organization [facility] Address [address] [place] [address] Care Team Providers Care Gynecological Assistant Name Role Phone Roxanna Maldonado MD Primary Care Provider [phone] Encounter Details Date Type Department Care Team (Late st Contact Info) Description 08/04/2024 Lab Requisition [facility] - Main Lab [address] [facility] [place] [phone] Esdras Valdivia MD [address] [place] [address] Essential (primary) hypertension Social History Tobacco Use Types Packs/Day Years Used Date Smoking Tobacco: Never Smokeless Tobacco: Never Alcohol Use Standard Drinks/Week Comments No 0 (1 standard drink = 0.6 oz pur e alcohol) Sex and Gender Information Value Date Recorded Sex Assigned at Not on file Gender Identity Not on file Sexual Orientation Not on file Job Start Date Occupation Industry Not on file Not on file Not on file documented as of this encounter Plan of Treatment Upcoming Encounters Date Type Department Care Team (Late st Contact Info) Description 11/25/2024 1:30 PM EST Office Visit Adult Medicine [address] [phone] Roxanna Maldonado MD [address] [place] [address] documented as of this encounter Procedures Procedure Name Priority Date/Time Associated Diagnosis Comments COMPLETE BLOOD COUNT Routine 08/05/2024 4:57 AM EST Essential (primary) hypertension BASIC METABOLIC PANEL Routine 08/05/2024 4:56 AM EST Essential (primary) hypertension documented in this encounter Results * Complete blood count (08/05/2024 4:57 AM EST) WBC 10.2 4.8 - 10.8 K/mcL LAB HEMETOLOGY METHOD 08/05/2024 10:59 AM [facility] RBC 4.20 3.80 - 4.80 M/mcL LAB HEMETOLOGY METHOD 08/05/2024 10:59 AM [facility] Hemoglobin 12.6 11.5 - 16.0 g/dL LAB HEMETOLOGY METHOD 08/05/2024 10:59 AM [facility] LAB Hematocrit 37.7 35.0 - 47.0 % LAB HEMETOLOGY METHOD 08/05/2024 10:59 AM [facility] MCV 89.8 79.0 - 98.0 FL LAB HEMETOLOGY METHOD 08/05/2024 10:59 AM [facility] MCH 30.0 27.0 - 32.0 pcg LAB HEMETOLOGY METHOD 08/05/2024 10:59 AM [facility] MCHC 33.4 32.0 - 37.0 g/dL LAB HEMETOLOGY METHOD 08/05/2024 10:59 AM [facility] RDW 12.0 11.0 - 15.0 % LAB HEMETOLOGY METHOD 08/05/2024 10:59 AM [facility] Platelets 285 130 - 400 K/mcL LAB HEMETOLOGY METHOD 08/05/2024 10:59 AM [facility] MPV 10.6 7.0 - 11.0 FL LAB HEMETOLOGY METHOD 08/05/2024 10:59 AM [facility] NRBC 0.0 <1.0 % LAB HEMETOLOGY METHOD 08/05/2024 10:59 AM EST [facility] NRBC Absolute 0.00 <0.10 K/mcL LAB HEMETOLOGY METHOD 08/05/2024 10:59 AM EST [facility] Blood Venous blood specimen / Unknown Venipuncture / Unknown 08/05/2024 4:57 AM EST 08/05/2024 9:25 AM EST Esdras Valdivia MD LAB BLOOD ORDERABLES [facility] [address] [place] [address], * (ABNORMAL) Basic metabolic panel (08/05/2024 4:56 AM EST) Sodium 137 133 - 145 mmol/L LAB CHEMISTRY METHOD 08/05/2024 11:31 AM [facility] Potassium 4.4 3.5 - 5.5 mmol/L LAB CHEMISTRY METHOD 08/05/2024 11:31 AM [facility] Chloride 99 96 - 110 mmol/L LAB CHEMISTRY METHOD 08/05/2024 11:31 AM [facility] CO2 30 21 - 32 mmol/L LAB CHEMISTRY METHOD 08/05/2024 11:31 AM [facility] Anion Gap 8 3 - 11 LAB CHEMISTRY METHOD 08/05/2024 11:31 AM [facility] Glucose 91 70 - 100 mg/dL LAB CHEMISTRY METHOD 08/05/2024 11:31 AM [facility] BUN 16 5 - 25 mg/dL LAB CHEMISTRY METHOD 08/05/2024 11:31 AM [facility] Creatinine 1.04 0.50 - 1.10 mg/dL LAB CHEMISTRY METHOD 08/05/2024 11:31 AM [facility] eGFR 55(L) >=60 mL/min/1. 73m2 LAB CHEMISTRY METHOD 08/05/2024 11:31 AM EST [facility] Comment:Calculation based on the??Chronic Kidney Disease Epidemiology Collaboration (CKD-EPI) equation refit??without adjustment for race. BUN/Creatinine Ratio 15.4 LAB CHEMISTRY METHOD 08/05/2024 11:31 AM EST [facility] Calcium 9.5 8.5 - 10.5 mg/dL LAB CHEMISTRY METHOD 08/05/2024 11:31 AM EST [facility] Blood Venous blood specimen / Unknown Venipuncture / Unknown 08/05/2024 4:56 AM EST 08/05/2024 9:21 AM EST Esdras Valdivia MD LAB BLOOD ORDERABLES [facility] [address] [place], [place] [address] [phone] documented in this encounter Visit Diagnoses Diagnosis Essential (primary) hypertension Unspecified essential hypertension documented in this encounter Care Teams Gynecological Assistant Relationship Specialty Start Date End Date Roxanna Maldonado MD [address] [place] [address] PCP - General Internal Medicine 06/03/22 documented as of this encounter
--- OUTSIDE RECORDS SUMMARY | 2024-10-27 15:20 | XMS_ITS | Encounter Summary ---
Author Organization [facility] Address [address] [place] [address] Care Team Providers Care Earth Observations Chief Scientist Name Role Phone Roxanna Maldonado MD Primary Care Provider Encounter Details Date Type Department Care Team (Late st Contact Info) Description 08/07/2024 Lab Requisition [facility] - Main Lab [address] [facility] [place] [phone] Esdras Valdivia MD [address] [place] [address] Essential (primary) hypertension Social History [...] 1:30 PM EST Office Visit Adult Medicine [address] [phone] Roxanna Maldonado MD [address] [place] [address] documented as of this encounter Procedures Procedure Name Priority Date/Time Associated Diagnosis Comments COMPLETE BLOOD COUNT Routine 08/09/2024 4:48 AM EST Essential (primary) hypertension COMPREHENSIVE METABOLIC PANEL Routine 08/09/2024 4:48 AM EST Essential (primary) hypertension documented in this encounter Results * (ABNORMAL) Comprehensive metabolic panel (08/09/2024 4:48 AM EST) Sodium 139 133 - 145 mmol/L LAB CHEMISTRY METHOD 08/09/2024 10:07 AM [facility] Potassium 4.5 3.5 - 5.5 mmol/L LAB CHEMISTRY METHOD 08/09/2024 10:07 AM [facility] LAB Chloride 102 96 - 110 mmol/L LAB CHEMISTRY METHOD 08/09/2024 10:07 AM [facility] LAB CO2 31 21 - 32 mmol/L LAB CHEMISTRY METHOD 08/09/2024 10:07 AM [facility] LAB Anion Gap 6 3 - 11 LAB CHEMISTRY METHOD 08/09/2024 10:07 AM [facility] LAB Glucose 73 70 - 100 mg/dL LAB CHEMISTRY METHOD 08/09/2024 10:07 AM [facility] BUN 16 5 - 25 mg/dL LAB CHEMISTRY METHOD 08/09/2024 10:07 AM [facility] Creatinine 1.03 0.50 - 1.10 mg/dL LAB CHEMISTRY METHOD 08/09/2024 10:07 AM [facility] LAB eGFR 56(L) >=60 mL/min/1. 73m2 LAB CHEMISTRY METHOD 08/09/2024 10:07 AM [facility] LAB Comment:Calculation based on the??Chronic Kidney Disease Epidemiology Collaboration (CKD-EPI) equation refit??without adjustment for race. BUN/Creatinine Ratio 15.5 LAB CHEMISTRY METHOD 08/09/2024 10:07 AM [facility] LAB Calcium 9.4 8.5 - 10.5 mg/dL LAB CHEMISTRY METHOD 08/09/2024 10:07 AM [facility] AST (SGOT) 21 10 - 42 unit/L LAB CHEMISTRY METHOD 08/09/2024 10:07 AM [facility] ALT (SGPT) 24 10 - 60 unit/L LAB CHEMISTRY METHOD 08/09/2024 10:07 AM [facility] Alkaline Phosphatase 30(L) 42 - 121 unit/L LAB CHEMISTRY METHOD 08/09/2024 10:07 AM [facility] Total Protein 6.2 6.0 - 8.0 g/dL LAB CHEMISTRY METHOD 08/09/2024 10:07 AM [facility] Albumin 3.3 3.2 - 5.0 g/dL LAB CHEMISTRY METHOD 08/09/2024 10:07 AM [facility] Total Bilirubin 0.3 0.0 - 1.4 mg/dL LAB CHEMISTRY METHOD 08/09/2024 10:07 AM [facility] Blood Venous blood specimen / Unknown Venipuncture / Unknown 08/09/2024 4:48 AM EST 08/09/2024 9:18 AM EST Esdras Valdivia MD LAB BLOOD ORDERABLES [facility] [address] [place] [address], * Complete blood count (08/09/2024 4:48 AM EST) WBC 6.9 4.8 - 10.8 K/mcL LAB HEMETOLOGY METHOD 08/09/2024 9:48 AM [facility] RBC 4.10 3.80 - 4.80 M/mcL LAB HEMETOLOGY METHOD 08/09/2024 9:48 AM [facility] LAB Hemoglobin 12.1 11.5 - 16.0 g/dL LAB HEMETOLOGY METHOD 08/09/2024 9:48 AM EST [facility] Hematocrit 37.6 35.0 - 47.0 % LAB HEMETOLOGY METHOD 08/09/2024 9:48 AM [facility] LAB MCV 92.2 79.0 - 98.0 FL LAB HEMETOLOGY METHOD 08/09/2024 9:48 AM [facility] MCH 29.7 27.0 - 32.0 pcg LAB HEMETOLOGY METHOD 08/09/2024 9:48 AM EST [facility] MCHC 32.2 32.0 - 37.0 g/dL LAB HEMETOLOGY METHOD 08/09/2024 9:48 AM [facility] RDW 12.2 11.0 - 15.0 % LAB HEMETOLOGY METHOD 08/09/2024 9:48 AM [facility] LAB Platelets 289 130 - 400 K/mcL LAB HEMETOLOGY METHOD 08/09/2024 9:48 AM EST [facility] MPV 10.3 7.0 - 11.0 FL LAB HEMETOLOGY METHOD 08/09/2024 9:48 AM [facility] LAB NRBC 0.0 <1.0 % LAB HEMETOLOGY METHOD 08/09/2024 9:48 AM [facility] LAB NRBC Absolute 0.00 <0.10 K/mcL LAB HEMETOLOGY METHOD 08/09/2024 9:48 AM [facility] Blood Venous blood specimen / Unknown Venipuncture / Unknown 08/09/2024 4:48 AM EST 08/09/2024 9:17 AM EST Esdras Valdivia MD LAB BLOOD ORDERABLES [facility] [address] [place] [address], documented in this encounter Visit Diagnoses Diagnosis Essential (primary) hypertension Unspecified essential hypertension documented in this encounter Care Teams Earth Observations Chief Scientist Relationship Specialty Start Date End Date Roxanna Maldonado MD [address] [place] [address] PCP - General Internal Medicine 06/03/22 documented as of this encounter
--- OUTSIDE RECORDS SUMMARY | 2024-10-27 15:20 | XMS_ITS | Encounter Summary ---
Author Organization [facility] Address [address] [place] [address] Care Team Providers Care Range Manager Name Role Phone Roxanna Maldonado MD Primary Care Provider [phone] Encounter Details Date Type Department Care Team (Late st Contact Info) Description 12/10/2022 Lab Requisition [facility] Three Lab [address] [place] [address] Kalpesh Ramey MD [address] [place] [address] Social History Tobacco Use Types Packs/Day Years [...] Info) Description 11/26/2024 4:15 PM EST Telehealth [facility] [address] [place] [address] Construction Director: Kalpesh Winkler MD [address] [place] [phone] documented as of this encounter Procedures * Due to [place] state law, this organization might not be sharing negative HIV tests. Procedure Name Priority Date/Time Associated Diagnosis Comments TISSUE EXAM Routine 12/10/2022 3:15 PM EDT documented in this encounter Results * Due to [place] state law, this organization might not be sharing negative HIV tests. * Tissue Exam (12/10/2022 3:15 PM EDT) Final Diagnosis Review of Outside Slides Received from [facility] Labeled [id number] Procedure Date 11/06/2022: Specimen #1 - Appendix with Right Fallopian Tube and Ovary, Salpingo-Oophorec nnamdi: - APPENDICEAL LOW GRADE MUCINOUS NEOPLASM, INVOLVING OVARY AND FALLOPIAN TUBE. - Pathologic stage (AJCC 8th Edition): pT4a Nx M1b. - See synoptic report for further details. Immunohistochemic al study for DNA mismatch repair (MMR) proteins performed at the outside institution and reviewed at [facility] demonstrates no loss of nuclear expression of MMR proteins: Immunohistochemis try: PROTEIN TUMOR MLH1 Protein expressed MSH2 Protein expressed MSH6 Protein expressed PMS2 Protein expressed Specimen #2 - Left Fallopian Tube and Ovary, Salpingo-Oophorec nnamdi: - Ovary with focal acellular mucin on ovarian surface. - Fallopian tube, no tumor or mucin seen. Specimen #3 - Omentum, Biopsy: - Omentum with acellular mucin. [facility] 12/13/2022 10:57 AM EDT [facility] ANATOMIC PATHOLOGY LABORATORY Preliminary result electronically signed by Familia Blanc MD on 12/12/2022 at 2:34 PM Preliminary result electronically signed by Familia Blanc MD on 12/12/2022 at 1:33 PM Synoptic Checklist APPENDIX: Resection APPENDIX: RESECTION - All Specimens 9th Edition - Protocol posted: 09/04/2022 SPECIMEN ?? Procedure: ?Appendectomy with right ovary and fallopian tube TUMOR ?? Tumor Site: ?Appendix, not otherwise specified ?? 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 Tumor Size: ?Greatest Dimension (Centimeters): Estimated 3-5 CM cm ?? Tumor Deposits: ?Cannot be determined ?? Tumor Extent: ?Tumor invades visceral peritoneum (serosa) ?? Lymphatic and / or Vascular Invasion: ?Not identified ?? Perineural Invasion: ?Not identified MARGINS ?? Margin Status for Invasive Carcinoma: ?Cannot be determined: Appendiceal resection is negative for tumor but it shows extensive involving outside of appendix. ?? Margin Status for Non-Invasive Tumor: ?Cannot be determined: Appendiceal resection is negative for tumor but it shows extensive involving outside of appendix. REGIONAL LYMPH NODES ?? Regional Lymph Node Status: ?Not applicable (no regional lymph nodes submitted or found) DISTANT METASTASIS ?? Distant Site(s) Involved: ?Intraperitoneal metastasis only (including peritoneal mucinous deposits containing tumor cells): adnexa soft tissue ?? Distant Site(s) Involved: ?Ovary ?? Distant Site(s) Involved: ?Fallopian tube pTNM CLASSIFICATION (AJCC 9th Version) ?? Reporting of pT, pN, and (when applicable) pM categories is based on information available to the pathologist at the time the report is issued. As per the AJCC (Chapter 1, 8th Ed.) it is the managing physician? s responsibility to establish the final pathologic stage based upon all pertinent information, including but potentially not limited to this pathology report. ?? pT Category: ?pT4a ?? pN Category: ?pN not assigned (no nodes submitted or found) ?? pM Category: ?pM1b 12/13/2022 10:57 AM EDT [facility] Clinical History Ovarian mass [facility] 12/13/2022 10:57 AM EDT [facility] Gross Consult Client Facility: [facility] Slide Identification: [id number] Number of Glass Slides Received: 25 Number of Blocks Received: 0 Client Pathologist: Lidia Durbin M.D. Accompanying Report Received: Yes [facility] 12/13/2022 10:57 AM EDT [facility] Embedded Images [facility] MANUAL 12/13/2022 10:57 AM EDT [email or web address] Resulting Agency Case was signed out at [facility], Department of Pathology, [facility] 3 CLIA [id number] [facility] 12/13/2022 10:57 AM EDT [facility] Report Header Surgical Pathology Report ? Case: [id number] ? Authorizing Provider: ??Kalpesh Ramey MD ?Collected: ? 12/10/2022 1515 ? Ordering Location: ? [facility] ? Received: ?12/10/2022 1516 ? [facility] ? Pathologist: ? Familia Blanc MD ? Specimens: ?? 1) - Fallopian Tube, Right, Ovary and Fallopian Tube, Right and Appendix ? 2) - Fallopian Tube, Left, Ovary and Fallopian Tube, Left ? 3) - Omentum, Omentum, Biopsy ? 12/13/2022 10:57 AM EDT [email or web address] Tissue Specimen from omentum / Unknown 12/10/2022 3:15 PM EDT 12/10/2022 3:16 PM EDT Tissue specimen (specimen) Structure of left fallopian tube / Unknown 12/10/2022 3:15 PM EDT 12/10/2022 3:16 PM EDT Tissue specimen (specimen) Specimen from omentum / Unknown 12/10/2022 3:15 PM EDT 12/10/2022 3:16 PM EDT us Kalpesh Ramey MD LAB PATHOLOGY/CYTOLOGY HERMINIA HERNADEZ Final Result [email or web address] [address] [place] [address], documented in this encounter Visit Diagnoses Not on filedocumented in this encounter Care Teams Range Manager Relationship Specialty Start Date End Date Roxanna Maldonado MD PCP - General 11/22/22 documented as of this encounter
--- OUTSIDE RECORDS SUMMARY | 2024-10-27 15:21 | XMS_ITS | Encounter Summary ---
Author Organization [facility] Address [address] [place] [address] Care Team Providers Care Websphere Portal Architect Name Role Phone Roxanna Maldonado MD Primary Care Provider [phone] Encounter Details Date Type Department Care Team (Late st Contact Info) Description 09/02/2023 Orders Only [facility] Interventional Radiology [address] [place] [address] Lionel Cartagena MD [address] [place] [phone] Social History Tobacco Use Types Packs/Day Years [...] Info) Description 11/26/2024 4:15 PM EST Telehealth [facility] [address] [place] [address] Java Web Services Developer: Kalpesh Winkler MD [address] [place] [address] documented as of this encounter Visit Diagnoses Not on filedocumented in this encounter Care Teams Websphere Portal Architect Relationship Specialty Start Date End Date Roxanna Maldonado MD PCP - General 11/22/22 documented as of this encounter
--- OUTSIDE RECORDS SUMMARY | 2024-10-27 15:21 | XMS_ITS | Encounter Summary ---
Author Organization [facility] Address [address] [place] [address] Care Team Providers Care Prize Jacker Name Role Phone Roxanna Maldonado MD Primary Care Provider [phone] Encounter Details Date Type Department Care Team (Late st Contact Info) Description 08/02/2024 Lab Requisition [facility] - Main Lab [address] [facility] [place] [phone] Esdras Valdivia MD [address] [place] [address] Essential (primary) hypertension Social History [...] 1:30 PM EST Office Visit Adult Medicine [address] [phone] Roxanna Maldonado MD [address] [place] [phone] documented as of this encounter Procedures Procedure Name Priority Date/Time Associated Diagnosis Comments COMPLETE BLOOD COUNT Routine 08/02/2024 5:02 AM EST Essential (primary) hypertension COMPREHENSIVE METABOLIC PANEL Routine 08/02/2024 5:02 AM EST Essential (primary) hypertension documented in this encounter Results * (ABNORMAL) Comprehensive metabolic panel (08/02/2024 5:02 AM EST) Sodium 140 133 - 145 mmol/L LAB CHEMISTRY METHOD 08/02/2024 12:03 PM [facility] Potassium 4.1 3.5 - 5.5 mmol/L LAB CHEMISTRY METHOD 08/02/2024 12:03 PM [facility] Chloride 103 96 - 110 mmol/L LAB CHEMISTRY METHOD 08/02/2024 12:03 PM [facility] CO2 29 21 - 32 mmol/L LAB CHEMISTRY METHOD 08/02/2024 12:03 PM [facility] Anion Gap 8 3 - 11 LAB CHEMISTRY METHOD 08/02/2024 12:03 PM [facility] Glucose 77 70 - 100 mg/dL LAB CHEMISTRY METHOD 08/02/2024 12:03 PM [facility] BUN 13 5 - 25 mg/dL LAB CHEMISTRY METHOD 08/02/2024 12:03 PM [facility] Creatinine 0.97 0.50 - 1.10 mg/dL LAB CHEMISTRY METHOD 08/02/2024 12:03 PM [facility] eGFR 60 >=60 mL/min/1. 73m2 LAB CHEMISTRY METHOD 08/02/2024 12:03 PM [facility] Comment:Calculation based on the??Chronic Kidney Disease Epidemiology Collaboration (CKD-EPI) equation refit??without adjustment for race. BUN/Creatinine Ratio 13.4 LAB CHEMISTRY METHOD 08/02/2024 12:03 PM [facility] Calcium 9.5 8.5 - 10.5 mg/dL LAB CHEMISTRY METHOD 08/02/2024 12:03 PM [facility] AST (SGOT) 39 10 - 42 unit/L LAB CHEMISTRY METHOD 08/02/2024 12:03 PM [facility] ALT (SGPT) 36 10 - 60 unit/L LAB CHEMISTRY METHOD 08/02/2024 12:03 PM [facility] Alkaline Phosphatase 32(L) 42 - 121 unit/L LAB CHEMISTRY METHOD 08/02/2024 12:03 PM [facility] Total Protein 6.1 6.0 - 8.0 g/dL LAB CHEMISTRY METHOD 08/02/2024 12:03 PM [facility] Albumin 3.0(L) 3.2 - 5.0 g/dL LAB CHEMISTRY METHOD 08/02/2024 12:03 PM [facility] Total Bilirubin 0.3 0.0 - 1.4 mg/dL LAB CHEMISTRY METHOD 08/02/2024 12:03 PM [facility] Blood Venous blood specimen / Unknown Venipuncture / Unknown 08/02/2024 5:02 AM EST 08/02/2024 10:26 AM EST Esdras Valdivia MD LAB BLOOD ORDERABLES [facility] [address] [place] [address], * Complete blood count (08/02/2024 5:02 AM EST) WBC 7.9 4.8 - 10.8 K/mcL LAB HEMETOLOGY METHOD 08/02/2024 11:20 AM [facility] RBC 4.30 3.80 - 4.80 M/mcL LAB HEMETOLOGY METHOD 08/02/2024 11:20 AM [facility] Hemoglobin 13.1 11.5 - 16.0 g/dL LAB HEMETOLOGY METHOD 08/02/2024 11:[address] [facility] Hematocrit 39.1 35.0 - 47.0 % LAB HEMETOLOGY METHOD 08/02/2024 11:20 AM [facility] MCV 90.3 79.0 - 98.0 FL LAB HEMETOLOGY METHOD 08/02/2024 11:20 AM [facility] MCH 30.3 27.0 - 32.0 pcg LAB HEMETOLOGY METHOD 08/02/2024 11:20 AM [facility] MCHC 33.5 32.0 - 37.0 g/dL LAB HEMETOLOGY METHOD 08/02/2024 11:20 AM [facility] RDW 12.0 11.0 - 15.0 % LAB HEMETOLOGY METHOD 08/02/2024 11:20 AM [facility] Platelets 256 130 - 400 K/mcL LAB HEMETOLOGY METHOD 08/02/2024 11:[address] [facility] MPV 11.0 7.0 - 11.0 FL LAB HEMETOLOGY METHOD 08/02/2024 11:20 AM [facility] NRBC 0.0 <1.0 % LAB HEMETOLOGY METHOD 08/02/2024 11:20 AM [facility] NRBC Absolute 0.00 <0.10 K/mcL LAB HEMETOLOGY METHOD 08/02/2024 11:20 AM [facility] Blood Venous blood specimen / Unknown Venipuncture / Unknown 08/02/2024 5:02 AM EST 08/02/2024 10:26 AM EST Esdras Valdivia MD LAB BLOOD ORDERABLES [facility] [address] [place] [address], documented in this encounter Visit Diagnoses Diagnosis Essential (primary) hypertension Unspecified essential hypertension documented in this encounter Care Teams Prize Jacker Relationship Specialty Start Date End Date Roxanna Maldonado MD [address] [place] [address] PCP - General Internal Medicine 06/03/22 documented as of this encounter
--- OUTSIDE RECORDS SUMMARY | 2024-10-27 15:21 | XMS_ITS | Encounter Summary ---
Author Organization [facility] Address [address] [place] [address] Care Team Providers Care Server Programmer Name Role Phone Roxanna Maldonado MD Primary Care Provider Encounter Details Date Type Department Care Team (Late st Contact Info) Description 08/11/2024 Lab Requisition [facility] - Main Lab [address] [facility] [place] [phone] Esdras Valdivia MD [address] [place] [address] Essential (primary) hypertension Social History [...] 1:30 PM EST Office Visit Adult Medicine [address] [phone] Roxanna Maldonado MD [address] [place] [phone] documented as of this encounter Visit Diagnoses Diagnosis Essential (primary) hypertension Unspecified essential hypertension documented in this encounter Care Teams Server Programmer Relationship Specialty Start Date End Date Roxanna Maldonado MD [address] [place] [phone] PCP - General Internal Medicine 06/03/22 documented as of this encounter
--- OUTSIDE RECORDS SUMMARY | 2024-10-27 15:21 | XMS_ITS | Encounter Summary ---
Author Organization [facility] Address [address] [place] [address] Care Team Providers Care Enterprise Systems Manager Name Role Phone Roxanna Maldonado MD Primary Care Provider [phone] Encounter Details Date Type Department Care Team (Late st Contact Info) Description 08/23/2024 Orders Only [facility] Interventional Radiology [address] [place] [address] Rik Ku MD [address] [place] [address] Social History Tobacco Use Types Packs/Day Years [...] Info) Description 11/26/2024 4:15 PM EST Telehealth [facility] [address] [place] [address] General Contractor: Kalpesh Winkler MD [address] [place] [address] documented as of this encounter Visit Diagnoses Not on filedocumented in this encounter Care Teams Enterprise Systems Manager Relationship Specialty Start Date End Date Roxanna Maldonado MD PCP - General 11/22/22 documented as of this encounter
--- OUTSIDE RECORDS SUMMARY | 2024-10-27 15:21 | XMS_ITS | Referral Summary ---
Author Organization [facility] Address [address] [place] [address] Care Team Providers Care Dry Charge Process Attendant Name Role Phone Roxanna Maldonado MD Primary Care Provider [phone] Encounters Date Type Department Care Team Description 08/23/2024 Orders Only [facility] Interventional Radiology [address] [place] [address] Rik Ku MD from Last 3 Months Allergies Active Allergy Reactions Criticality Noted Date Comments Omeprazole Tachycardia 05/18/2014 Heart racing Medications cholecalciferol 25 mcg (1,000 unit) tablet Take 1,000 Units by mouth once a day. 3 Active chlorhexidine (HIBICLENS) 4% external liquid Preop surgical skin wash. Please follow provided instructions from doctor. 3 Active citalopram (CeleXA) 10 mg tablet Take 10 mg by mouth once a day. 3 Active hydroCHLOROthia zide (MICROZIDE) 12.5 mg capsule Take 12.5 mg by mouth once a day. 3 Active levothyroxine (SYNTHROID, LEVOTHROID) 75 mcg tablet Take 75 mcg by mouth. 3 Active simvastatin (ZOCOR) 10 mg tablet Take 10 mg by mouth nightly. 3 Active memantine 7 mg capsule,sprinkl e,ER 24hr SMARTSI Capsule(s) By Mouth Daily 3 Active Active Problems Problem Noted Date Diagnosed Date Prediabetes 08/27/2021 Hypertension 04/28/2019 CKD (chronic kidney disease) stage 3, GFR 30-59 ml/min 08/29/2014 Overview (12/03/2022): GFR 52 on 12/20/13. Closed fracture of distal end of radius 07/04/20 11 Hypothyroidism 09/17/2006 Overview (12/03/2022): Initial hyperthyroid - I 131 treatment about 1997 Pure hypercholesterolemia 09/17/2006 Overweight 09/17/2006 Social History Tobacco Use Types Packs/Day Years Used Date Smoking Tobacco: Never Smokeless Tobacco: Never Tobacco Cessation:Counseling Given: Not Answered Alcohol Use Standard Drinks/Week Comments Not Currently 0 (1 standard drink = 0.6 oz pur e alcohol) Comments No Sex and Gender Information Value Date Recorded Sex Assigned at Not on file Legal Sex Female 9:46 AM EST Gender Identity Not on file Sexual Orientation Not on file Last Filed Vital Signs Vital Sign Reading Time Taken Comments Blood Pressure 165/84 01/14/2023 12:24 PM EDT Pulse 84 01/14/2023 12:24 PM EDT Temperature 36.5 ??C (97.7 ??F) 01/14/2023 12:24 PM E DT Respiratory Rate 16 01/14/2023 12:24 PM EDT Oxygen Saturation 98% 01/14/2023 12:24 PM EDT Inhaled Oxygen Concentration - - Weight 76.9 kg (169 lb 8 oz) 01/14/2023 12:24 PM EDT Height - - Body Mass Index - - Plan of Treatment Upcoming Encounters Date Type Department Care Team (Late st Contact Info) Description 11/26/2024 4:15 PM EST Telehealth [facility] [address] [place] [phone] Photographic Plate Maker: Kalpesh Winkler MD [address] [place] [phone] Procedures * Due to [place] state law, this organization might not be sharing negative HIV tests. Procedure Name Priority Date/Time Associated Diagnosis Comments COMPREHENSIVE METABOLIC PANEL STAT 03/26/2024 4:40 PM EDT Pseudomyxoma peritonei (HCC) from Last 3 Months or Most Recently Relevant to Health Maintenance Results * Due to [place] state law, this organization might not be sharing negative HIV tests. * (ABNORMAL) Comprehensive Metabolic Panel (03/26/2024 4:40 PM EDT) NA 137 135 - 145 mmol/L 03/26/2024 5:34 PM EDT [facility] K 3.5 3.5 - 5.3 mmol/L 03/26/2024 5:34 PM EDT [facility] Cl 94(L) 98 - 107 mmol/L 03/26/2024 5:34 PM EDT [facility] CO2 30 24 - 32 mmol/L 03/26/2024 5:34 PM EDT [facility] Anion Gap 13 5 - 15 03/26/2024 5:34 PM EDT [facility] Glucose 169(H) 65 - 99 mg/dL 03/26/2024 5:34 PM EDT [facility] Creatinine 1.15 0.50 - 1.20 mg/dL 03/26/2024 5:34 PM EDT [facility] Calcium 9.7 8.6 - 10.5 mg/dL 03/26/2024 5:34 PM EDT [facility] Total Protein 6.7 6.0 - 8.0 g/dL 03/26/2024 5:34 PM EDT [facility] Albumin 4.3 3.5 - 5.2 g/dL 03/26/2024 5:34 PM EDT [facility] Bilirubin, Total 0.5 0.2 - 1.2 mg/dL 03/26/2024 5:34 PM EDT [facility] Alkaline Phosphatase 31(L) 35 - 129 U/L 03/26/2024 5:34 PM EDT [facility] AST 28 10 - 40 U/L 03/26/2024 5:34 PM EDT [facility] ALT 17 10 - 40 U/L 03/26/2024 5:34 PM EDT [facility] BUN 15 7 - 23 mg/dL 03/26/2024 5:34 PM EDT [facility] eGFR 49(L) >=60 mL/min/1. 73m2 03/26/2024 5:34 PM EDT [facility] Comment:The estimated glomer ular filtration rate (eGFR) is calculated using a new formula developed by the NKF-ASN task force to eliminate race-based correction factors. The new formula uses serum/plasma creatinine, age, and gender to determine eGFR. A value below 60mls/min might indicate kidney disease and will be flagged. For additional information, see Baum et al, Am J Kidney Dis. 2021;79(2):268- 288, A Unifying Approach for GFR estimation: Recommendations of the NKF-ASN Task Force on Reassessing the Inclusion of Race in Diagnosing Kidney Disease . Globulin, Total 2.4 2.1 - 4.2 g/dL 03/26/2024 5:34 PM EDT [facility] A/G Ratio 1.8 1.5 - 3.0 03/26/2024 5:34 PM EDT [facility] Blood Structure of peripheral vein / Unknown Venipuncture / Unknown 03/26/2024 4:40 PM EDT 03/26/2024 4:57 PM EDT us Kalpesh Ramey MD LAB BLOOD ORDERABLES Final Result [facility] [address] [place] [address], from Last 3 Months or Most Recently Relevant to Health Maintenance Insurance MEDICARE [facility] Care Teams Dry Charge Process Attendant Relationship Specialty Start Date End Date Roxanna Maldonado MD PCP - General 11/22/22
--- OUTSIDE RECORDS SUMMARY | 2024-10-27 15:21 | XMS_ITS | Encounter Summary ---
Author Organization [facility] Address [address] [place] [address] Care Team Providers Care Locksmith Name Role Phone Roxanna Maldonado MD Primary Care Provider [phone] Encounter Details Date Type Department Care Team (Late st Contact Info) Description 08/01/2024 Lab Requisition [facility] - Main Lab [address] [facility] [place] [phone] Esdras Valdivia MD [address] [place] [address] Essential (primary) hypertension Social History [...] 1:30 PM EST Office Visit Adult Medicine [address] [phone] Roxanna Maldonado MD [address] [place] [address] documented as of this encounter Procedures Procedure Name Priority Date/Time Associated Diagnosis Comments COMPLETE BLOOD COUNT Routine 08/01/2024 6:27 AM EST Essential (primary) hypertension COMPREHENSIVE METABOLIC PANEL Routine 08/01/2024 6:27 AM EST Essential (primary) hypertension documented in this encounter Results * (ABNORMAL) Comprehensive metabolic panel (08/01/2024 6:27 AM EST) Sodium 140 133 - 145 mmol/L LAB CHEMISTRY METHOD 08/01/2024 1:32 PM [facility] Potassium 4.2 3.5 - 5.5 mmol/L LAB CHEMISTRY METHOD 08/01/2024 1:32 PM [facility] Chloride 103 96 - 110 mmol/L LAB CHEMISTRY METHOD 08/01/2024 1:32 PM [facility] CO2 32 21 - 32 mmol/L LAB CHEMISTRY METHOD 08/01/2024 1:32 PM [facility] Anion Gap 5 3 - 11 LAB CHEMISTRY METHOD 08/01/2024 1:32 PM [facility] Glucose 81 70 - 100 mg/dL LAB CHEMISTRY METHOD 08/01/2024 1:32 PM [facility] BUN 13 5 - 25 mg/dL LAB CHEMISTRY METHOD 08/01/2024 1:32 PM [facility] Creatinine 1.00 0.50 - 1.10 mg/dL LAB CHEMISTRY METHOD 08/01/2024 1:32 PM [facility] eGFR 58(L) >=60 mL/min/1. 73m2 LAB CHEMISTRY METHOD 08/01/2024 1:32 PM [facility] Comment:Calculation based on the??Chronic Kidney Disease Epidemiology Collaboration (CKD-EPI) equation refit??without adjustment for race. BUN/Creatinine Ratio 13.0 LAB CHEMISTRY METHOD 08/01/2024 1:32 PM [facility] Calcium 9.0 8.5 - 10.5 mg/dL LAB CHEMISTRY METHOD 08/01/2024 1:32 PM [facility] AST (SGOT) 28 10 - 42 unit/L LAB CHEMISTRY METHOD 08/01/2024 1:32 PM [facility] ALT (SGPT) 23 10 - 60 unit/L LAB CHEMISTRY METHOD 08/01/2024 1:32 PM [facility] Alkaline Phosphatase 28(L) 42 - 121 unit/L LAB CHEMISTRY METHOD 08/01/2024 1:32 PM [facility] Total Protein 5.8(L) 6.0 - 8.0 g/dL LAB CHEMISTRY METHOD 08/01/2024 1:32 PM [facility] Albumin 2.8(L) 3.2 - 5.0 g/dL LAB CHEMISTRY METHOD 08/01/2024 1:32 PM [facility] Total Bilirubin 0.3 0.0 - 1.4 mg/dL LAB CHEMISTRY METHOD 08/01/2024 1:32 PM [facility] Blood Venous blood specimen / Unknown Venipuncture / Unknown 08/01/2024 6:27 AM EST 08/01/2024 12:22 PM EST Esdras Valdivia MD LAB BLOOD ORDERABLES Performing Organization Address City/State/[facility] Co de Phone Number [facility] [address] [place] [address], * (ABNORMAL) Complete blood count (08/01/2024 6:27 AM EST) WBC 5.7 4.8 - 10.8 K/mcL LAB HEMETOLOGY METHOD 08/01/2024 1:08 PM [facility] RBC 4.10 3.80 - 4.80 M/mcL LAB HEMETOLOGY METHOD 08/01/2024 1:08 PM [facility] Hemoglobin 12.1 11.5 - 16.0 g/dL LAB HEMETOLOGY METHOD 08/01/2024 1:[address] [facility] Hematocrit 37.7 35.0 - 47.0 % LAB HEMETOLOGY METHOD 08/01/2024 1:08 PM [facility] MCV 91.5 79.0 - 98.0 FL LAB HEMETOLOGY METHOD 08/01/2024 1:[address] [facility] MCH 29.4 27.0 - 32.0 pcg LAB HEMETOLOGY METHOD 08/01/2024 1:[address] [facility] MCHC 32.1 32.0 - 37.0 g/dL LAB HEMETOLOGY METHOD 08/01/2024 1:[address] [facility] RDW 12.1 11.0 - 15.0 % LAB HEMETOLOGY METHOD 08/01/2024 1:08 PM [facility] Platelets 215 130 - 400 K/mcL LAB HEMETOLOGY METHOD 08/01/2024 1:[address] [facility] MPV 11.1(H) 7.0 - 11.0 FL LAB HEMETOLOGY METHOD 08/01/2024 1:[address] [facility] NRBC 0.0 <1.0 % LAB HEMETOLOGY METHOD 08/01/2024 1:08 PM [facility] NRBC Absolute 0.00 <0.10 K/mcL LAB HEMETOLOGY METHOD 08/01/2024 1:08 PM [facility] Blood Venous blood specimen / Unknown Venipuncture / Unknown 08/01/2024 6:27 AM EST 08/01/2024 12:22 PM EST Esdras Valdivia MD LAB BLOOD ORDERABLES [facility] [address] [place] [address], documented in this encounter Visit Diagnoses Diagnosis Essential (primary) hypertension Unspecified essential hypertension documented in this encounter Care Teams Locksmith Relationship Specialty Start Date End Date Roxanna Maldonado MD [address] [place] [phone] PCP - General Internal Medicine 06/03/22 documented as of this encounter
--- OUTSIDE RECORDS SUMMARY | 2024-10-27 15:21 | XMS_ITS | Clinical Summary ---
Author Organization [facility] Address [address] [place] [address] Care Team Providers Care Associate Teacher Name Role Phone Roxanna Maldonado MD Primary Care Provider [phone] Allergies Active Allergy Reactions Criticality Noted Date [...] about 1997 Pure hypercholesterolemia 09/17/2006 Overweight 09/17/2006 Encounters Date Type Department Care Team Description 08/23/2024 Orders Only [facility] Interventional Radiology [address] [place] [address] Rik Ku MD from Last 3 Months Family History Medical History Relation Name Comments Uterine cancer Mother Relation Name Status Comments Daughter 1 Alive Daughter 2 Alive Daughter 3 Alive Daughter 4 Alive Daughter 5 Alive Father Mother Son Alive Social History Tobacco Use Types Packs/Day Years [...] Description 11/26/2024 4:15 PM EST Telehealth [facility] [address] [place] [address] Coal Equipment Operator: Kalpesh Winkler MD [address] [place] [address] Health Maintenance Due Date Last Done Comments Hepatitis C Screening 1945 Urine Microalbumin 1955 Zoster Vaccines (1 of 2) 1964 Osteoporosis Screening 1995 Pneumococcal Vaccine: 65+ Years (2 of 2 - PPSV23 or PCV20) 02/28/2015 01/03/2015 RSV Vaccine (60+ years old and patients) (1 - 1-dose 75+ series) 2020 COVID-19 Vaccine (4 - season) 2024 09/12/2021, 12/01/2020, 11/03/2020 Influenza Vaccine (#1) 2024 Alcohol/Substance Use Screening 09/22/2024 Depression Screening and Follow-Up 09/22/2024 Health Care Proxy Review 09/22/2024 Social Drivers of Health Annual Screening 09/22/2024 Basic Metabolic Panel 03/26/2025 03/26/2024 , 12/02/2023, 10/31/2023, Additional history exists DTaP,Tdap,and Td Vaccines (2 - Td or Tdap) 01/14/2029 01/14/2019, 01/03/2015, 04/23/2004 Hepatitis B Vaccines Aged Out No long er eligible based on patient's age to complete this topic Procedures * Due to [place] [employer] law, this organization might not be sharing negative HIV tests. Procedure Name Priority Date/Time Associated Diagnosis Comments COMPREHENSIVE METABOLIC PANEL STAT 03/26/2024 4:40 PM EDT Pseudomyxoma peritonei (HCC) from Last 3 Months or Most Recently Relevant to Health Maintenance Results * Due to [place] [employer] law, this organization might not be sharing negative HIV tests. * (ABNORMAL) Comprehensive Metabolic Panel (03/26/2024 4:40 PM EDT) NA 137 135 - 145 mmol/L 03/26/2024 5:34 PM EDT [facility] K 3.5 3.5 - 5.3 mmol/L 03/26/2024 5:34 PM EDT [facility] Cl 94(L) 98 - 107 mmol/L 03/26/2024 5:34 PM EDT [facility] CO2 30 24 - 32 mmol/L 03/26/2024 5:34 PM EDT [facility] Anion Gap 13 5 - 15 03/26/2024 5:34 PM EDT [facility] Glucose 169(H) 65 - 99 mg/dL 03/26/2024 5:34 PM EDT [facility] Creatinine 1.15 0.50 - 1.20 mg/dL 03/26/2024 5:34 PM EDT [facility] Calcium 9.7 8.6 - 10.5 mg/dL 03/26/2024 5:34 PM EDT [facility] Total Protein 6.7 6.0 - 8.0 g/dL 03/26/2024 5:34 PM EDT [facility] Albumin 4.3 3.5 - 5.2 g/dL 03/26/2024 5:34 PM EDT [facility] Bilirubin, Total 0.5 0.2 - 1.2 mg/dL 03/26/2024 5:34 PM EDT [facility] Alkaline Phosphatase 31(L) 35 - 129 U/L 03/26/2024 5:34 PM EDT [facility] AST 28 10 - 40 U/L 03/26/2024 5:34 PM EDT [facility] ALT 17 10 - 40 U/L 03/26/2024 5:34 PM EDT [facility] BUN 15 7 - 23 mg/dL 03/26/2024 5:34 PM EDT [facility] eGFR 49(L) >=60 mL/min/1. 73m2 03/26/2024 5:34 PM EDT [facility] Comment:The estimated glomer ular [...] - 4.2 g/dL 03/26/2024 5:34 PM EDT [facility] A/G Ratio 1.8 1.5 - 3.0 03/26/2024 5:34 PM EDT [facility] Blood Structure of peripheral vein / Unknown Venipuncture / Unknown 03/26/2024 4:40 PM EDT 03/26/2024 4:57 PM EDT Kalpesh Ramey MD LAB BLOOD ORDERABLES Final Result [facility] [address] [place] [phone], from Last 3 Months or Most Recently Relevant to Health [place] [id number] [facility] Care Teams Associate Teacher Relationship Specialty Start Date End Date Roxanna Maldonado MD PCP - General 11/22/22
--- OUTSIDE RECORDS SUMMARY | 2024-10-27 15:21 | XMS_ITS | Clinical Summary ---
Author Organization [facility] Address [address] [place] [phone] Phone Care Team Providers Care Bench Worker Name Role Phone Roxanna Maldonado MD Primary Care Provider [phone] Allergies Active Allergy Reactions Criticality Noted Date Comments Omeprazole 05/18/2014 Heart racing Medications Medication Sig Dispensed Refills Start Date End Date Status chlorhexidine (Hibiclens) 4 % external liquid Preop surgical skin wash. Please follow provided instructions from doctor. 10/30/2022 Active citalopram (CeleXA) 10 mg tablet Take 10 mg by mouth daily. 05/06/2022 Active levothyroxine (SYNTHROID, LEVOTHROID) 88 mcg tablet Take 1 Tablet by mouth daily. 06/23/2024 Active memantine (NAMENDA XR) 28 mg extended release capsule TAKE 1 CAPSULE BY MOUTH ONCE DAILY 06/16/2023 Active Vitamin D3 25 mcg (1,000 unit) tablet Take 1 Tablet by mouth daily. 90 tablet 1 08/25/2024 Active hydroCHLOROthia zide (MICROZIDE) 12.5 mg capsule Take 1 Capsule by mouth daily. 90 capsule 1 10/05/2024 Active simvastatin (ZOCOR) 10 mg tablet Take 1 Tablet by mouth at bedtime. 90 tablet 1 10/05/2024 Active hydroCHLOROthia zide (MICROZIDE) 12.5 mg capsule Take 1 Capsule by mouth daily. 06/15/2024 Discontinued simvastatin (ZOCOR) 10 mg tablet Take 1 Tablet by mouth at bedtime. 11/18/2023 5 Discontinued Active Problems Problem Noted Date Diagnosed Date Prediabetes 08/27/2021 Hypertension 04/28/2019 CKD (chronic kidney disease) stage 3, GFR 30-59 ml/min 08/29/2014 Overview (07/15/2024): GFR 52 on 12/20/13. Closed fracture of distal end of radius 07/04/20 11 Hypothyroidism 09/17/2006 Overview (07/15/2024): Initial hyperthyroid - I 131 treatment about 1997 Overweight 09/17/2006 Pure hypercholesterolemia 09/17/2006 Encounters Date Type Department Care Team Description 09/13/2024 3:00 PM EST Office Visit Urogynecology [address] [phone] Adrianne Hargrove MD Nocturia (Primary Dx); Urge incontinence 09/08/2024 Telephone Adult Medicine [address] [phone] Roxanna Maldonado MD Hospital Follow up appointment 08/11/[address] [facility] - Main Lab [address] [place] [phone] Esdras Valdivia MD Essential (primary) hypertension 08/07/2024 Lab Requisition [facility] Main Lab [address] [place] [address] Esdras Valdivia MD Essential (primary) hypertension 08/04/2024 Lab Requisition [facility] Main Lab [address] [place] [address] Esdras Valdivia MD Essential (primary) hypertension 08/02/2024 Lab Requisition [facility] Main Lab [address] [place] [address] Esdras Valdivia MD Essential (primary) hypertension 08/01/2024 Lab Requisition [facility] Main Lab [address] [place] [address] Esdras Valdivia MD Essential (primary) hypertension from Last 3 Months Immunizations Name Administration Dates Next Due Pneumococcal conjugate 13 va lent (Prevnar 13, PCV13) 2mo and older 01/03/2015 Td Tetanus diptheria (Tdvax) 7yo and older 01/03 Td, Unspecified 04/23/2004 Tdap Tetanus diptheria acell ular pertussis (Boostrix; Adacel) 7yo and older 01/14/2019 Surgical History Surgery Date Site/Laterality Comments MULTIPLE TOOTH EXTRACTIONS PROCEDURE: EACH ADD TOOTH EXTRACTION; COMMENT: tooth abcess and removed COLONOSCOPY 2014 PROCEDURE: HISTORICAL COLONOSCOPY; COMMENT: f/u 10 yrs OTHER SURGICAL HISTORY PROCEDURE: HISTORICAL SQUAMOUS CELL CA; COMMENT: 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, invasive keratoacanthoma type) 05/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 (well differentiated, invasive) Medical History Medical History Date Comments Historical Medical DX DX:Other a cute embolism veins; COMMENT: Left leg during approx 1973 Pure hypercholesterolemia 09/17/2006 DX:Pur e hypercholesterolemia Unspecified hypothyroidism 09/17/2006 DX:Un specified hypothyroidism; COMMENT: Initial hyperthyroid - I 131 treatment about 1997 Influenza B 01/17/2011 DX:Influenza B Chronic lower back pain DX:Chron ic lower back pain; COMMENT: sees chiropractor History of uterine fibroid DX:Hi story of uterine fibroid Ruptured appendicitis 11/2014 DX:Rupture d appendicitis; COMMENT: Treated conservatively with antibiotics History of squamous cell car cinoma of skin 05/21/2018 DX:History of squamous cell carcinoma of skin; COMMENT: 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, invasive keratoacanthoma type) 05/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 (well differentiated, invasive) Essential (primary) hypertension DX:Essential (primary) hypertension Family History Medical History Relation Name Comments Hypertension Father older Diabetes Mother older Hypertension Mother older Thyroid disease Mother Uterine cancer Mother Thyroid disease Sister 1 Thyroid disease Sister 2 Breast cancer Neg Hx Colon cancer Neg Hx Ovarian cancer Neg Hx Relation Name Status Comments Brother 1 Alive 1 brother in [facility] Brother 2 (Age 43) 1 brother (car accident) Daughter Alive 5 healthy daugh ters ages 43*Merary*, 41 *Luda* 40 *Beatris* 35 *Carolynn* 44 *Yumiko* Father Alive age 80s COPD, o steoporosis and dementia Maternal Grandfather (Age 72) he art disease Maternal Grandmother (Age 63) DM Mother (Age 89) age 80s in good health, DM x dementia Paternal Grandfather (Age 82) ol d age Paternal Grandmother (Age 86) ol d age Sister 1 Sister 2 Sister 3 Alive 5 sisters - hea lthy x 1 heart and 1 spot on lundg and emphysema Son Alive 1 son *Bentley* - sub abuse Social History Tobacco Use Types Packs/Day Years Used Date Smoking Tobacco: Never Smokeless Tobacco: Never Tobacco Cessation:Counseling Given: Not Answered Alcohol Use Standard Drinks/Week Comments No 0 (1 standard drink = 0.6 oz pur e alcohol) Sex and Gender Information Value Date Recorded Sex Assigned at Not on file Gender Identity Not on file Sexual Orientation Not on file Job Start Date Occupation Industry Not on file Not on file Not on file Obstetrics History Last Filed Vital Signs Vital Sign Reading Time Taken Comments Blood Pressure 135/75 09/13/2024 2:51 PM EST Pulse 84 09/13/2024 2:51 PM EST Temperature 36.9 ??C (98.4 ??F) 07/26/2024 11:[address] Respiratory Rate 16 09/13/2024 2:51 PM EST Oxygen Saturation - - Inhaled Oxygen Concentration - - Weight 79.4 kg (175 lb) 09/13/2024 2:51 PM EST Height 154.9 cm (5' 1 ) 09/13/2024 2:51 PM EST Body Mass Index 33.07 09/13/2024 2:51 PM EST Plan of Treatment Upcoming Encounters Date Type Department Care Team (Late st Contact Info) Description 11/25/2024 1:30 PM EST Office Visit Adult Medicine [address] [phone] Roxanna Maldonado MD [address] [place] [phone] Health Maintenance Due Date Last Done Comments Zoster Vaccines (1 of 2) 1964 Pneumococcal Vaccine: 65+ Years (2 of 2 - PPSV23 or PCV20) 02/28/2015 01/03/2015 RSV Immunization Patients 60+ Years Old (1 - 1-dose 75+ series) 2020 Depression Screening 08/31/2022 Falls Risk Assessment 08/31/2022 Medicare Annual Wellness Visit 08/31/2022 Osteoporosis Screening (Bone Density Screening) 08/31/2022 Social Influencers of Health Screening 08/31/2022 COVID-19 Vaccine (4 - season) 2024 09/12/2021, 12/01/2020, 11/03/2020 Influenza Vaccine (#1) 2024 Hypertension/CHF/CAD Annual BMP Blood Test 08/09/2025 08/09/2024, 08/05/2024, 08/02/2024, Additional history exists Cholesterol Screening (Lipid Panel) 06/05/2027 06/05/2022 DTaP,Tdap,and Td Vaccines (4 - Td or Tdap) 01/14/2029 01/14/2019, 01/03/2015, 04/23/2004 Hepatitis C Screening Completed 03/31/2014 HIB Vaccines Aged Out No longer eligi ble based on patient's age to complete this topic HPV Vaccines Aged Out No longer eligi ble based on patient's age to complete this topic Hepatitis A Vaccines Aged Out No long er eligible based on patient's age to complete this topic Hepatitis B Vaccines Aged Out No long er eligible based on patient's age to complete this topic IPV Vaccines Aged Out No longer eligi ble based on patient's age to complete this topic MMR Vaccines Aged Out No longer eligi ble based on patient's age to complete this topic Meningococcal ACWY Vaccine Aged Out N o longer eligible based on patient's age to complete this topic RSV Immunization Patients Under 20 months Aged Out No longer eligible based on patient's age to complete this topic Varicella Vaccines Aged Out No longer eligible based on patient's age to complete this topic Procedures Procedure Name Priority Date/Time Associated Diagnosis Comments COMPREHENSIVE METABOLIC PANEL Routine 08/09/2024 4:48 AM EST Essential (primary) hypertension COMPLETE BLOOD COUNT Routine 08/09/2024 4:48 AM EST Essential (primary) hypertension COMPLETE BLOOD COUNT Routine 08/05/2024 4:57 AM EST Essential (primary) hypertension BASIC METABOLIC PANEL Routine 08/05/2024 4:56 AM EST Essential (primary) hypertension COMPREHENSIVE METABOLIC PANEL Routine 08/02/2024 5:02 AM EST Essential (primary) hypertension COMPLETE BLOOD COUNT Routine 08/02/2024 5:02 AM EST Essential (primary) hypertension COMPREHENSIVE METABOLIC PANEL Routine 08/01/2024 6:27 AM EST Essential (primary) hypertension COMPLETE BLOOD COUNT Routine 08/01/2024 6:27 AM EST Essential (primary) hypertension EXTERNAL CT REPORT 07/28/2024 LIPID PANEL Routine 06/05/2022 HEPATITIS C SCREENING Routine 03/31/2014 from Last 3 Months or Most Recently Relevant to Health Maintenance Results * Complete blood count (08/09/2024 4:48 AM EST) Only the most recent of4 resultswithin the time period is included. WBC 6.9 4.8 - 10.8 K/mcL LAB HEMETOLOGY METHOD 08/09/2024 9:48 AM [facility] RBC 4.10 3.80 - 4.80 M/mcL LAB HEMETOLOGY METHOD 08/09/2024 9:48 AM [facility] Hemoglobin 12.1 11.5 - 16.0 g/dL LAB HEMETOLOGY METHOD 08/09/2024 9:48 AM [facility] Hematocrit 37.6 35.0 - 47.0 % LAB HEMETOLOGY METHOD 08/09/2024 9:48 AM [facility] MCV 92.2 79.0 - 98.0 FL LAB HEMETOLOGY METHOD 08/09/2024 9:48 AM [facility] MCH 29.7 27.0 - 32.0 pcg LAB HEMETOLOGY METHOD 08/09/2024 9:48 AM EST [facility] MCHC 32.2 32.0 - 37.0 g/dL LAB HEMETOLOGY METHOD 08/09/2024 9:48 AM EST [facility] RDW 12.2 11.0 - 15.0 % LAB HEMETOLOGY METHOD 08/09/2024 9:48 AM [facility] Platelets 289 130 - 400 K/mcL LAB HEMETOLOGY METHOD 08/09/2024 9:48 AM EST [facility] MPV 10.3 7.0 - 11.0 FL LAB HEMETOLOGY METHOD 08/09/2024 9:48 AM [facility] NRBC 0.0 <1.0 % LAB HEMETOLOGY METHOD 08/09/2024 9:48 AM [facility] NRBC Absolute 0.00 <0.10 K/mcL LAB HEMETOLOGY METHOD 08/09/2024 9:48 AM [facility] Blood Venous blood specimen / Unknown Venipuncture / Unknown 08/09/2024 4:48 AM EST 08/09/2024 9:17 AM EST Esdras Valdivia MD LAB BLOOD ORDERABLES [facility] [address] [place] [address], * (ABNORMAL) Comprehensive metabolic panel (08/09/2024 4:48 AM EST) Only the most recent of3 resultswithin the time period is included. Sodium 139 133 - 145 mmol/L LAB CHEMISTRY METHOD 08/09/2024 10:07 AM [facility] Potassium 4.5 3.5 - 5.5 mmol/L LAB CHEMISTRY METHOD 08/09/2024 10:07 AM [facility] Chloride 102 96 - 110 mmol/L LAB CHEMISTRY METHOD 08/09/2024 10:07 AM [facility] CO2 31 21 - 32 mmol/L LAB CHEMISTRY METHOD 08/09/2024 10:07 AM [facility] Anion Gap 6 3 - 11 LAB CHEMISTRY METHOD 08/09/2024 10:07 AM [facility] Glucose 73 70 - 100 mg/dL LAB CHEMISTRY METHOD 08/09/2024 10:07 AM [facility] BUN 16 5 - 25 mg/dL LAB CHEMISTRY METHOD 08/09/2024 10:07 AM [facility] Creatinine 1.03 0.50 - 1.10 mg/dL LAB CHEMISTRY METHOD 08/09/2024 10:07 AM [facility] eGFR 56(L) >=60 mL/min/1. 73m2 LAB CHEMISTRY METHOD 08/09/2024 10:07 AM [facility] Comment:Calculation based on the??Chronic Kidney Disease Epidemiology Collaboration (CKD-EPI) equation refit??without adjustment for race. BUN/Creatinine Ratio 15.5 LAB CHEMISTRY METHOD 08/09/2024 10:07 AM [facility] Calcium 9.4 8.5 - 10.5 mg/dL LAB CHEMISTRY METHOD 08/09/2024 10:07 AM [facility] AST (SGOT) 21 10 - 42 unit/L LAB CHEMISTRY METHOD 08/09/2024 10:07 AM [facility] ALT (SGPT) 24 10 - 60 unit/L LAB CHEMISTRY METHOD 08/09/2024 10:07 AM [facility] Alkaline Phosphatase 30(L) 42 - 121 unit/L LAB CHEMISTRY METHOD 08/09/2024 10:07 AM [facility] Total Protein 6.2 6.0 - 8.0 g/dL LAB CHEMISTRY METHOD 08/09/2024 10:07 AM [facility] Albumin 3.3 3.2 - 5.0 g/dL LAB CHEMISTRY METHOD 08/09/2024 10:07 AM [facility] Total Bilirubin 0.3 0.0 - 1.4 mg/dL LAB CHEMISTRY METHOD 08/09/2024 10:07 AM [facility] Blood Venous blood specimen / Unknown Venipuncture / Unknown 08/09/2024 4:48 AM EST 08/09/2024 9:18 AM EST Esdras Valdivia MD LAB BLOOD ORDERABLES [facility] [address] [place] [address], * (ABNORMAL) Basic metabolic panel (08/05/2024 4:56 [...] LAB CHEMISTRY METHOD 08/05/2024 11:31 AM EST [facility] Comment:Calculation based on the??Chronic Kidney Disease Epidemiology Collaboration (CKD-EPI) equation refit??without adjustment for race. BUN/Creatinine Ratio 15.4 LAB CHEMISTRY METHOD 08/05/2024 11:31 AM EST [facility] Calcium 9.5 8.5 - 10.5 mg/dL LAB CHEMISTRY METHOD 08/05/2024 11:31 AM EST [facility] Blood Venous blood specimen / Unknown Venipuncture / Unknown 08/05/2024 4:56 AM EST 08/05/2024 9:21 AM EST Esdras Valdivia MD LAB BLOOD ORDERABLES [facility] [address] [place] [address], * External CT Report (07/28/2024) Anatomical Region Laterality Modality Computed Tomogra phy Provider [facility] PROCEDURE S * Lipid panel (06/05/2022) Pathologist [facility] LDL/HDL Ratio 3 0 - 4 Triglycerides 150 0 - 150 mg/dL Cholesterol 190 0 - 200 mg/dL HDL 64 40 mg/dL LDL Cholesterol 96 0 - 100 mg/dL Blood Venous blood specimen / Unknown Historical Provider LAB BLOOD ORDERAB LES * Hepatitis C Screening (03/31/2014) Pathologist [facility] Hepatitis C Screening Abstracted Historical Provider MD RAFAEL Isidro from Last 3 Months or Most Recently Relevant to Health Maintenance Care Teams Bench Worker Relationship Specialty Start Date End Date Roxanna Maldonado MD [address] [place] [phone] PCP - General Internal Medicine 06/03/22
--- OUTSIDE RECORDS SUMMARY | 2024-10-27 15:21 | XMS_ITS | Encounter Summary ---
Author Organization [facility] Address [address] [place] [address] Care Team Providers Care Almond Pan Finisher Name Role Phone Roxanna Maldonado MD Primary Care Provider [phone] Encounter Details Date Type Department Care Team (Late st Contact Info) Description 03/14/2024 Orders Only [facility] Interventional Radiology Department [address] [place] [id number] Fei Collins MD [address] [place] [phone] Social History Tobacco Use Types Packs/Day Years [...] Info) Description 11/26/2024 4:15 PM EST Telehealth [facility] [address] [place] [address] Pressing Department Supervisor: Kalpesh Winkler MD [address] [place] [address] documented as of this encounter Visit Diagnoses Not on filedocumented in this encounter Care Teams Almond Pan Finisher Relationship Specialty Start Date End Date Roxanna Maldonado MD PCP - General 11/22/22 documented as of this encounter
== END 2024-10-27 14:58 | disposition home or self-care (01) ==
PROVIDERS: PCP Internal Medicine; Visit Provider Psychiatry & Neurology Neurology
DX: R41.89 Other symptoms and signs involving cognitive functions and awareness (principal); F41.9 Anxiety disorder, unspecified
CPT/HCPCS: 99214

== ENCOUNTER → 2024-10-27 14:02 | Outpatient (BNVA) | payer MEDICARE, BC, SELFPAY | PROVIDERS: PCP Internal Medicine; Visit Provider Psychiatry & Neurology Neurology | DX: F09 Unspecified mental disorder due to known physiological condition (principal); F41.9 Anxiety disorder, unspecified | CPT/HCPCS: 99212 ==

== ENCOUNTER 2025-04-27 15:26 | Outpatient (AMB) | payer MEDICARE, BC, SELFPAY ==
--- NOTE | 2025-04-27 15:31 | A.OFFVIS_ITS ---
Vital Signs 04/27/25 15:32 Height 5 ft 4 in Weight 177 lb BMI 30.4 BP 114/76 Blood Pressure Location Lt brachial Pulse 91 Pulse Source Pulse Oximeter Pulse Oximetry (%) 95 Oxygen Delivery Method Room Air Intake Visit Reasons: Follow up 6mo Intake Note: Patient presents 6 month follow up for cognitive. Patient states patient is very tired and thinks there is kids in the house. Accompanied by: Spouse Allergies No Known Allergies Allergy (Verified 04/27/25 15:35) HPI Comments Details: 79 r. handed female is here for a f/u visit for dementia. Her accompanies her and helps with history though both are poor historians. Reviewed MRI with patient today, normal process of aging, 09/18/21- moderate parenchymal volume loss and probably white matter changes. She says her son and Daughter in law live with them, the 3 grandsons are 18, 20, 23 year old and this can be overwhelming. Her memory is poor, repeats, and has difficulty with recall, word finding, needs redirection and is oriented to self on MMSE. She does not like to walk, is sedentary and has trouble with stairs, doesn't use a walker or cane, denies falls. She has dizziness, feels off balance, fears falling and does not hear well. She has trouble getting out of a chair and bed. She doesn't like to shower per her . She does not prepare meals anymore, her does all the cooking and they eat out a lot. Her daughters try to motivate her to be more social however she prefers to read. She says she is not motivated, feels excessive fatigue and can sleep all day. Denies hallucinations and sleep difficulties, parasomnias, RLS symptoms. Mood is always anxious and managed with Citalopram. Diet is stable. [facility] Medical History Dementia Cognitive change Gait disorder Appendix carcinoma Cancer Back pain Hypothyroidism Hyperlipidemia HTN (hypertension) Surgical History Hx of appendectomy H/O bilateral oophorectomy Family History Mother HTN (hypertension) Diabetes mellitus Cancer Thyroid disorder Dementia Father Dementia Social History Household Members: Spouse Housing: House Do you presently have visiting nurse or other home services: No Unable to assess alcohol history related to: Unable to respond Alcohol intake: never Patient Tobacco Use Status: Never used Tobacco e-Cigarette/Vaping Use: Never Used Second Hand Smoke Exposure: No Advance Directives Date on File: 08/02/24 service: No Physical Exam Vital Signs: Last Vital Signs Pulse 91 04/27/25 15:32 BP 114/76 04/27/25 15:32 Pulse Ox 95 04/27/25 15:32 Oxygen Delivery Method Room Air 04/27/25 15:32 BMI result Body Mass Index 30.4 Const Orientation/consciousness: oriented to person and oriented to place Eyes Pupils: Equal, round and reactive pupils present Neuro Other: gait is slow and off balance finger to nose abnormal General: oriented to person, oriented to place and moves all extremities Cranial nerves: Yes Facial sensation intact/muscles of mastication intact, Yes Equal, round and reactive pupils present, Yes Normal accommodation reflex present, Yes Normal facial strength present, Yes Ability to bilaterally rotate head present and Yes Ability to bilaterally elevate shoulders present Cognition (Neuro): abnormal cognition Gait exam (Neuro): Staggering gait present and Other gait observations present (off balance) Motor exam (neuro): Abnormal motor strength present and Abnormal muscle tone present Psych Appearance: grossly normal Insight: Limited insight present (Psych) Judgement: Limited judgement present (Psych) Orientation Where are we (state) (county) (town or city) (hospital) (floor)?: state and town or city Score Score: 2 Results Reviewed Results Reviewed: MRI 2022- normal process of aging Assessment & Plan Assessment & Plan (1) Cognitive disorder: Code(s): F09 - Unspecified mental disorder due to known physiological condition (2) Balance disorder: Comment: declines PT Code(s): R26.89 - Other abnormalities of gait and mobility Category: Medical Plan Continue citalopram 20mg qd for anxiety Dementia Continue namenda XR 28mg qd, will r/f. Suggested to include cognitive activities like playing cards , cross word puzzle etc in her daily activity. MMSE attempted today, however patient repeats, needs constant redirection and confused. Speech and Hearing Referral Neuro-Psychiatry referral memory [facility] Orders: Referrals Speech and Hearing Referral R41.89 - Other symptoms and signs involving cognitive functions and awareness Neuropsychiatry Referral R41.89 - Other symptoms and signs involving cognitive functions and awareness Medications: Refilled memantine 28 mg PO DAILY 30 ea 6RF Patient Instructions: Sleep Hygiene provided: set a scheduled bedtime and wake time to help regulate the circadian rhythm and balance the release of pituitary hormones. Sleep in a dark room, temperatures below 68 degrees, and no devices n bed. Limit caffeinated products 6 hours prior to bed, and limit fluids 2-4 hours prior to bed. Gentle night yoga, diffusing essential oils, and playing soft music can be relaxing. Coding Level of Care Code Est Pt Level 4 (84668) Diagnoses Cognitive disorder F09 Balance disorder R26.89 Time Spent (min) 35 Comment worsening dementia
[2025-04-27 15:32] VITALS: BP 114/76; PULSE 91; O2SAT 95; BMI 30.4
--- OUTSIDE RECORDS SUMMARY | 2025-04-27 15:56 | XMS_ITS ---
Author Name [facility] Organization Unknown Care Team Organization Name Specialty Phone Email Start Date End Da te [facility] KEYSHAWN MURRY Primary Care [email or web address] 05/29/2023 4 [facility] Roxanna Maldonado Primary Care 12/24/2022 02 4 [facility] Mac, PROVIDER Primary Care 07/30/2022 4
--- OUTSIDE RECORDS SUMMARY | 2025-04-27 15:56 | XMS_ITS | Encounter Summary ---
Author Organization [facility] Address [address] [place] [address] Care Team Providers Care Ancillary Specialist Name Role Phone Roxanna Maldonado MD Primary Care Provider [phone] Encounter Details Date Type Department Care Team (Late st Contact Info) Description 08/07/2024 Lab Requisition [facility] - Main Lab [address] [facility] [place] [id number] Esdras Valdivia MD [address] [place] [address] Essential (primary) hypertension Social History Tobacco Use Types Packs/Day Years Used Date Smoking Tobacco: Never Smokeless Tobacco: Never Alcohol Use Standard Drinks/Week Comments No 0 (1 standard drink = 0.6 oz pur e alcohol) Comments Unknown Sex and Gender Information Value Date Recorded Sex Assigned at Not on file Legal Sex Female 1:53 PM EST Gender Identity Not on file Sexual Orientation Not on file documented as of this encounter Plan of Treatment Not on file documented as of this encounter Procedures Procedure Name Priority Date/Time Associated Diagnosis Comments COMPLETE BLOOD COUNT Routine 08/09/2024 4:48 AM EST Essential (primary) hypertension COMPREHENSIVE METABOLIC PANEL Routine 08/09/2024 4:48 AM EST Essential (primary) hypertension documented in this encounter Results * (ABNORMAL) Comprehensive metabolic panel (08/09/2024 4:48 AM EST) [facility] Sodium 139 133 - 145 mmol/L LAB CHEMISTRY METHOD 08/09/2024 10:07 AM [facility] Potassium 4.5 3.5 - 5.5 mmol/L LAB CHEMISTRY METHOD 08/09/2024 10:07 AM [facility] Chloride 102 96 - 110 mmol/L LAB CHEMISTRY METHOD 08/09/2024 10:07 AM [facility] CO2 31 21 - 32 mmol/L LAB CHEMISTRY METHOD 08/09/2024 10:07 AM [facility] Anion Gap 6 3 - 11 LAB CHEMISTRY METHOD 08/09/2024 10:07 AM [facility] Glucose 73 70 - 100 mg/dL LAB CHEMISTRY METHOD 08/09/2024 10:07 AM [facility] BUN 16 5 - 25 mg/dL LAB CHEMISTRY METHOD 08/09/2024 10:07 AM [facility] Creatinine 1.03 0.50 - 1.10 mg/dL LAB CHEMISTRY METHOD 08/09/2024 10:07 AM [facility] eGFR 56(L) >=60 mL/min/1. 73m2 LAB CHEMISTRY METHOD 08/09/2024 10:07 AM [facility] Comment:Calculation based on the Chronic Kidney Disease Epidemiology Collaboration (CKD-EPI) equation refit without adjustment for race. BUN/Creatinine Ratio 15.5 LAB CHEMISTRY METHOD 08/09/2024 10:07 AM [facility] Calcium 9.4 8.5 - 10.5 mg/dL LAB CHEMISTRY METHOD 08/09/2024 10:07 AM [facility] AST (SGOT) 21 10 - 42 unit/L LAB CHEMISTRY METHOD 08/09/2024 10:07 AM [facility] ALT (SGPT) 24 10 - 60 unit/L LAB CHEMISTRY METHOD 08/09/2024 10:07 AM [facility] Alkaline Phosphatase 30(L) 42 - 121 unit/L LAB CHEMISTRY METHOD 08/09/2024 10:07 AM EST [facility] Total Protein 6.2 6.0 - 8.0 g/dL LAB CHEMISTRY METHOD 08/09/2024 10:07 AM [facility] Albumin 3.3 3.2 - 5.0 g/dL LAB CHEMISTRY METHOD 08/09/2024 10:07 AM [facility] Total Bilirubin 0.3 0.0 - 1.4 mg/dL LAB CHEMISTRY METHOD 08/09/2024 10:07 AM [facility] Blood Venous blood specimen / Unknown Venipuncture / Unknown 08/09/2024 4:48 AM EST 08/09/2024 9:18 AM EST us Esdras Valdivia MD LAB BLOOD ORDERABLES Final Resu lt [facility] [address] [place] [address], [place] [phone] * Complete blood count (08/09/2024 4:48 AM EST) WBC 6.9 4.8 - 10.8 K/mcL LAB HEMETOLOGY METHOD 08/09/2024 9:48 AM [facility] RBC 4.10 3.80 - 4.80 M/mcL LAB HEMETOLOGY METHOD 08/09/2024 9:48 AM [facility] Hemoglobin 12.1 11.5 - 16.0 g/dL LAB HEMETOLOGY METHOD 08/09/2024 9:48 AM [facility] Hematocrit 37.6 35.0 - 47.0 % LAB HEMETOLOGY METHOD 08/09/2024 9:48 AM [facility] MCV 92.2 79.0 - 98.0 FL LAB HEMETOLOGY METHOD 08/09/2024 9:48 AM [facility] MCH 29.7 27.0 - 32.0 pcg LAB HEMETOLOGY METHOD 08/09/2024 9:48 AM EST [facility] MCHC 32.2 32.0 - 37.0 g/dL LAB HEMETOLOGY METHOD 08/09/2024 9:48 AM [facility] RDW 12.2 11.0 - 15.0 % LAB HEMETOLOGY METHOD 08/09/2024 9:48 AM EST [facility] Platelets 289 130 - 400 K/mcL LAB HEMETOLOGY METHOD 08/09/2024 9:48 AM [facility] MPV 10.3 7.0 - 11.0 FL LAB HEMETOLOGY METHOD 08/09/2024 9:48 AM EST [facility] NRBC 0.0 <1.0 % LAB HEMETOLOGY METHOD 08/09/2024 9:48 AM [facility] NRBC Absolute 0.00 <0.10 K/mcL LAB HEMETOLOGY METHOD 08/09/2024 9:48 AM [facility] Blood Venous blood specimen / Unknown Venipuncture / Unknown 08/09/2024 4:48 AM EST 08/09/2024 9:17 AM EST us Esdras Valdivia MD LAB BLOOD ORDERABLES Final Resu lt [facility] [address] [place] [address], documented in this encounter Visit Diagnoses Diagnosis Essential (primary) hypertension Unspecified essential hypertension documented in this encounter Care Teams Ancillary Specialist Relationship Specialty Start Date End Date Roxanna Maldonado MD [address] [place] [id number] PCP - General Internal Medicine 06/03/22 documented as of this encounter
--- OUTSIDE RECORDS SUMMARY | 2025-04-27 15:56 | XMS_ITS | Clinical Summary ---
Author Organization [address] Address [address] [place] [phone] Phone Care Team Providers Care [employer] Teacher Name Role Phone Yumiko Cabral MD Primary Care Provider [phone] Allergies No known active allergies Medications levothyroxine (SYNTHROID, LEVOTHROID) 75 MCG tablet Take 75 mcg by mouth daily Active Immunizations Immunization Administration Dates Next Due Tdap 01/14/2019 Social History Tobacco Use Types Packs/Day Years Used Date Smoking Tobacco: Never Smokeless Tobacco: Never Alcohol Use Standard Drinks/Week Comments Never 0 (1 standard drink = 0.6 oz pur e alcohol) AUDIT-C Answer Date Recorded Frequency of Alcohol Consumption Never 01/14/2019 Average Number of Drinks Not on file 019 Frequency of Binge Drinking Not on file 12/22 Comments Unknown Sex and Gender Information Value Date Recorded Sex Assigned at Not on file Legal Sex Female 12:04 PM EDT Gender Identity Not on file Sexual Orientation Not on file Last Filed Vital Signs Vital Sign Reading Time Taken Comments Blood Pressure 172/98 01/14/2019 2:22 PM EDT Pulse 75 01/14/2019 2:22 PM EDT Temperature 36.3 C (97.3 F) 01/14/2019 1:55 PM EDT Respiratory Rate 20 01/14/2019 2:22 PM EDT Oxygen Saturation 99% 01/14/2019 2:22 PM EDT Inhaled Oxygen Concentration - - Weight 71.2 kg (157 lb) 01/14/2019 12:10 PM EDT Height 154.9 cm (5' 1 ) 01/14/2019 12:10 PM EDT Body Mass Index 29.66 01/14/2019 12:10 PM EDT Plan of Treatment Health Maintenance Due Date Last Done Comments HIV screening 1958 Hepatitis C screening 1963 Lipid disorder screening 1985 Diabetes screening 1990 Shingles vaccine (Shingrix) (1 of 2 - Shingrix (RZV) 2 Dose Standard Series) 1995 Osteoporosis screening (bone density) 2010 Pneumococcal Vaccine (50+ ye ars) (2 of 2 - PPSV23) 01/04/2016 01/03/2015 RSV Immunization (1 - 1-dose 75+ series) 2020 Covid-19 vaccine series ( - 2023- season) 2024 Influenza vaccine 05/23/2025 Tetanus adult (Td q 10,TDAP once) 01/14/2029 019 Breast cancer screening Discontinued Cervical cancer screening Discontinued Colon cancer screening, Colonoscopy Discontinued Meningococcal Vaccine Aged Out No wallace theron eligible based on patient's age to complete this topic Insurance [facility] MEDICARE [facility] MEDICARE [facility] MEDICARE Care Teams [employer] Teacher Relationship Specialty Start Date End Date Yumiko Cabral MD PCP - General Internal Medicine 01/14/19
--- OUTSIDE RECORDS SUMMARY | 2025-04-27 15:56 | XMS_ITS | Encounter Summary ---
Author Organization [facility] Address [address] [place] [address] Care Team Providers Care Flat Breakdown Processor Name Role Phone Roxanna Maldonado MD Primary Care Provider [phone] Encounter Details Date Type Department Care Team (Late st Contact Info) Description 12/03/2022 Orders Only [facility] Xray [address] [place] [address] Ara Cartagena MD [address] [place] [address] Social History Tobacco Use Types Packs/Day Years [...] Care Team (Late st Contact Info) Description 12/20/2025 3:30 PM EDT Telehealth [facility] [address] [place] [address] It Recruiter: Kalpesh Winkler MD [address] [place] [address] documented as of this encounter Visit Diagnoses Not on filedocumented in this encounter Care Teams Flat Breakdown Processor Relationship Specialty Start Date End Date Roxanna Maldonado MD PCP - General 11/22/22 documented as of this encounter
== END 2025-04-27 16:26 | disposition home or self-care (01) ==
PROVIDERS: PCP Internal Medicine; Visit Provider Psychiatry & Neurology Neurology
DX: R41.89 Other symptoms and signs involving cognitive functions and awareness (principal); R26.89 Other abnormalities of gait and mobility
CPT/HCPCS: 99214

== ENCOUNTER → 2025-04-27 15:26 | Outpatient (BNVA) | payer MEDICARE, BC, SELFPAY | PROVIDERS: PCP Internal Medicine; Visit Provider Psychiatry & Neurology Neurology | DX: R26.89 Other abnormalities of gait and mobility (principal); F09 Unspecified mental disorder due to known physiological condition; Z79.899 Other long term (current) drug therapy | CPT/HCPCS: 99212 ==

== ENCOUNTER → 2025-05-19 13:30 | Outpatient (RCR) | payer MEDICARE, BC, SELFPAY ==
--- NOTE | 2023-05-19 12:40 | MHC.SP.ADU ---
Referring provider: Dr. Stacy Craft Reason for Referral: Other symptoms and signs involving cognitive functions and awareness Type of Treatment: 95310 Standardized Cognitive Performance Testing, per hour Date of Plan of Treatment: 05/08/23 Onset of Symptoms/Illness: 04/17/23 Date Treatment Started: 05/19/23 Medical Diagnosis: Other symptoms and signs involving cognitive functions and awareness Primary Speech Language Diagnosis: R41.841 Cognitive communication disorder History Pt is a pleasant, frequently confused 77 year-old female who arrives with her Daughter. They report difficulty with short-term memory with infrequent word finding difficulties. She has not had a neuropsych eval to their knowledge. PMH includes Appendix CA, Back pain, Gait disorder, HTN, HLD, Hypothyroidism. She is on medication for anxiety. She reports a stressful home life with her Son and his family living with her and her . Her Daughter reports the house is frequently untidy and that Jane has been withdrawing from social engagement. Her continues to work and they enjoy going on long drives and eating out at restaurants. She was engaged briefly with PT, but stopped going because of medication changes and poor HEP compliance. Social History: Employment Status: Retired Highest level of education obtained: Completed High School/GED Other Therapies Seen in Current Calendar Year: Physical Therapy Swallowing History: Dysphagia Specific: Denies Comments: Pre-eval Risk for Aspiration: Pre-evaluation Dietary Consistencies: Pre-eval Liquid Intake: Pre-eval Medication Intake: Assessment Speech Production: Aphasic: Fluent Articulate Within Functional Limits Clinical Impression: Intact Informal Voice Assessment: Voice Loudness: Normal Voice Nasal Resonance: Normal Voice Oral Resonance: Voice Phonatory-based Quality: Normal Voice Pitch: Normal Voice Other Observations: Clinical Impression: Intact Clinicial Observations: Tests of Speech & Lang Adults: Clinical Impression: Intact Tests of Cognition: RBANS Clinical Impression: Impaired Observations: Jane participated in the RBANS - Update, Form A. She was dillagent and effortful throughout testing. The following results are deemed a valid and reliable measure of her skills on the day of testing. R-BANS Update I.) Immediate Memory Index: 5 Ia.) List Learning: -- Scaled Score: 2 Ib.) Story Memory: -- Scaled Score: 4 II.) Visuospatial/Constructional Index: 60 IIa.) Figure/Copy: -- Scaled Score: 13 IIb.) Line Orientation: -- Percentile Group: >75 III.) Language Index: 82 IIIa.) Picture Naming: -- Percentile Group: <2 IIIb.) Semantic Fluency: -- Scaled Score: 3 IV.) Attention Index: 90 Rinku.) Digit Span: -- Scaled Score: 14 IVb.) Coding: -- Scaled Score: 5 V.) Delayed Memory Index: 48 Va.) List Recall: -- Percentile Group: 3-9 Vb.) List Recognition: -- Percentile Group: <2 Vc.) Story Recall: -- Scaled Score: 2 Vd.) Figure Recall: -- Scaled Score: 1 Total Scale Score: 72 (%ile: 3) Impressions and Recommendations Summary: Selenes scored varied widely between relative strengths in Visuospatial Construction (Ymfcz=890) and Digit Span (SS=14). On the later subtest she was able to recall up to 8 digits forwards. He largest area of deficit include both short term and custodial memory for a list, a story, and a figure. Significantly she achieved a SS of 13 on the Figure Copy condition, but a 0 on the Figure Recall, as she was unable to recall and details about the figure. When cued, she apolinar lines from the Line Orientation task. Unfortunately Jane's performance did demonstrate impairment in memory and executive function, however given her specific constellation of scores, she is not deemed an appropriate candidate for Cognitive-Communication treatment at this time. She would need to gain information from our sessions and carry them over at home to progress. It is not likely that she will retain any new information presented to her without external supports. Her Daughter is in agreement. They are referred to the [facility] for further socialization, exercise, and cognitive stimulation. She is additionally provided with information on [facility] for additional community supports and assessment of her safety at home. Prognosis for Improvement: Guarded Comment: As above Recommendation for Speech Therapy: Discharged with Instructions for Home Use Time to Reassess: PRN Recommended Referrals to be Discussed with Primary Care Provider: Neurology Neuropsychological Eval Patient Education: Completed: Yes Patient/Caregiver Education: Patient expressed understanding of evaluation Patient agrees with goals and treatment plan Family/Caregivers expressed understanding of results Family/Caregivers expressed agreement with goals and treatment plan Patient requires further education on strategies Comments/Barriers to Learning: Under Water Assistant Clinican/Clinical Fellow: No Supervisory Statement: N/A Speech Language Pathologist: Rudolph James M.A., [facility] COURSE EQUIPMENT OPERATOR
== END | disposition home or self-care (01) ==
LOC: HO.SH 05-08 09:35
PROVIDERS: Visit Provider Psychiatry & Neurology Neurology
DX: R41.89 Other symptoms and signs involving cognitive functions and awareness (principal)
CPT/HCPCS: 96125